=== PATIENT | female | born 1940 | race Caucasian/White ===

== ENCOUNTER 2016-05-14 08:47 | Inpatient (IN) | payer OTHER ==
[2016-05-14] MEDS ORDERED: DUONEB (A & A) ONE (09:01)
[2016-05-14] MEDS ORDERED: HUMULIN R SUBQ ONE (09:02)
[2016-05-14] MEDS ORDERED: SOLU-MEDROL IV ONE (09:02)
[2016-05-14] MEDS ORDERED: DECADRON MISC ONE (09:02)
[2016-05-14] MEDS ORDERED: ATROVENT NEB INH ONE (09:02)
[2016-05-14] MEDS ORDERED: ALBUTEROL NEB INH ONE (09:02)
[2016-05-14] MEDS ORDERED: SOLU-MEDROL ONE (09:03)
[2016-05-14 09:11] LABS: ALLEN TEST YES; BE -2.5 mmoll (-3.0-3.0); BLOOD TYPE ARTERIAL; DRAW SITE R RADIAL; METHB 1.2 % (0.0-1.5); O2(CT) 13.5 mL/dL (15.0-23.0); PCO2(98.6) 43 mmHg (35-45); PO2(98.6) 55 mmHg (60-100); SAMPLE BLOOD; SAO2 88.1 % (95.0-100.0); THB 11.2 g/dL (11.5-17.4); pH(98.6) 7.34 (7.35-7.45)
[2016-05-14 09:14] LABS: MODALITY CANNULA
[2016-05-14 09:17] LABS: MANUAL DIFF NEEDED? NO
[2016-05-14 09:23] LABS: BASO% 0.1 % (0.0-0.8); HEMATOCRIT 35.9 % (37.0-47.0); IMM GRAN# 0.07 X1000 (0.0-0.04); IMM GRAN% 0.4 % (0.0-0.5); LYMPH# 2.11 X1000 (1.2-3.4); LYMPH% 12.3 % (20.5-51.1); MCH 24.2 PG (27-31); MCHC 30.6 g/dL (33-37); MCV 79.1 FL (81-99); MONO% 10.5 % (1.7-9.3); MPV 11.1 FL (7.4-10.4); NEUT% 76.7 % (42.2-75.2); PLT 306 X1000 (130-400); RBC 4.54 XMIL (4.2-5.4)
--- NOTE | 2016-05-14 09:33 | PROVIDER DOCUMENTATION ---
HPI-Fever - General Chief Complaint: Possible Sepsis-D Stated Complaint: resp distress Time Seen by Provider: 05/14/16 08:56 Source: EMS Unable to obtain history due to:: altered Allergies/Adverse Reactions: Patient Allergies Allergy/AdvReac Type Severity Reaction Status Date / Time amoxicillin trihydrate * Allergy VOMITING Verified 03/01/16 01:44 [From Augmentin] potassium clavulanate * Allergy VOMITING Verified 03/01/16 01:44 [From Augmentin] Home Medications: Home Medication List Medication Instructions Recorded Confirmed Last Taken Type Aspirin 500 mg PO DAILY 03/01/16 03/01/16 Unknown History Carvedilol Phosphate [Coreg Cr] 80 mg PO DAILY 03/01/16 03/01/16 Unknown History Carvedilol [Coreg] 50 mg PO DAILY 03/01/16 03/01/16 02/29/16 History Duloxetine [Cymbalta] 30 mg PO QHS 03/01/16 03/01/16 02/29/16 History Furosemide 20 mg PO PRN PRN 03/01/16 03/01/16 Unknown History Gabapentin 600 mg PO TID 03/01/16 03/01/16 Unknown History Glimepiride 4 mg PO BID 03/01/16 03/01/16 Unknown History Insulin Glargine [Lantus] 20 unit .SEE ORDER QPM 03/01/16 03/01/16 Unknown History Lorazepam [Ativan] 1 mg PO Q4-6H PRN PRN 03/01/16 03/01/16 02/28/16 History Naproxen 440 mg PO DAILY 03/01/16 03/01/16 02/29/16 History Potassium Chloride 10 meq PO DAILY 03/01/16 03/01/16 Unknown History Telmisartan 80 mg PO DAILY 03/01/16 03/01/16 Unknown History Tramadol [Ultram] 50 mg PO DAILY 03/01/16 03/01/16 02/29/16 History Trazodone [Desyrel] 50 mg PO QHS 03/01/16 03/01/16 02/28/16 History Levofloxacin [Levaquin] 750 mg PO DAILY #5 tablet 03/05/16 Unknown Rx Prednisone 10 mg PO DAILY #12 tablet 03/05/16 Unknown Rx - History of Present Illness-Fever Fever Severity/Quality: reports: low grade Onset/Duration: reports: unsure Timing: reports: still present, constant Severity: reports: moderate, severe Context: reports: decreased mental status, confusion Cognitive Baseline: alert, oriented x3 Modifying Factors: improves with: nothing Associated Symptoms: reports: cough, fever/chills, shortness of breath, weakness . denies: constipation, diarrhea, genitourinary problems, vomiting Similar Symptoms Previously?: No Recently seen or treated by another doctor?: No Review of Systems - Adult - REVIEW OF SYSTEMS - ADULT ROS:: limited per condition Constitutional: reports: chills, fever Eyes: reports: no symptoms reported Ears, Nose, Mouth & Throat: denies: sinus problem, throat pain, throat swelling Cardiovascular: reports: no symptoms reported Respiratory: reports: chronic cough, shortness of breath. denies: wheezing Gastrointestinal: denies: abdominal pain, diarrhea, vomiting Genitourinary: denies: dysuria, frequency, hematuria Musculoskeletal: reports: no symptoms reported Integumentary: reports: no symptoms reported Neurological: reports: no symptoms reported Psychiatric: reports: no symptoms reported Endocrine: reports: no symptoms reported Hematologic/Lymphatic: reports: no symptoms reported Allergic/Immunologic: reports: no symptoms reported All Other Systems: Reviewed and Negative Past History - Adult - PAST MEDICAL HISTORY-ADULT Review of Records: reports: Old Records Reviewed, Nursing Assessment Review, Medications Reviewed Cardiovascular: reports: CHF, HTN Respiratory: reports: COPD Endocrine/Immune: reports: Diabetes - PRIOR SURGERIES/PROCEDURES Surgical/Procedure History: reports: none - IMMUNIZATION STATUS Childhood Immunizations: See Nurse Assessment Flu Vaccine: See Nurse Assessment - FAMILY HISTORY Family History: reviewed, not pertinent - SOCIAL HISTORY Smoking: cigarettes, less than 1 pack/day Living Situation: family Physical Exam-General - PHYSICAL EXAM-ADULT Exam Limited by: pt condition Initial Vital Signs Reviewed: Yes - CONSTITUTIONAL General Appearance: severe distress, lethargic - EYES Eyes: PERRL/EOMI, pink conjunctivae - HEAD, EARS, NOSE, MOUTH & THROAT HENMT: normocephalic/atraumatic, moist mucous membranes, normal ENT inspection - NECK Neck: full range of motion, normal inspection - RESPIRATORY Respiratory: respiratory distress (moderate), decreased breath sounds, increased rate - CARDIOVASCULAR Cardiovascular: no murmur, tachycardia - GASTROINTESTINAL (ABDOMEN) Abdominal Exam: normal bowel sounds, non tender, soft - MUSCULOSKELETAL Extremity: normal range of motion, normal inspection, no pedal edema - SKIN Integumentary: normal color, warm/dry - NEUROLOGIC Neurologic: grossly normal, no motor/sensory deficits - PSYCHIATRIC Psych/Mental Status: normal mood/affect, normal thought content, normal thought process, oriented x 3 Progress - PLAN OF CARE/RESULTS Progress/Plan/Lab Results: plan of care-labs, meds, bipap, cxr Vital Signs Temp Pulse Resp BP Pulse Ox 05/14/16 11:01 101 H 23 107/54 100 05/14/16 10:17 114 H 23 108/72 98 05/14/16 09:52 110 H 22 148/79 98 05/14/16 09:44 105 H 21 97 05/14/16 08:51 99.7 F H 122 H 22 178/144 89 L amoxicillin trihydrate * [From Augmentin] Allergy (Verified 03/01/16 01:44) VOMITING potassium clavulanate * [From Augmentin] Allergy (Verified 03/01/16 01:44) VOMITING Aspirin 500 mg PO DAILY 03/01/16 Carvedilol Phosphate [Coreg Cr] 80 mg PO DAILY 03/01/16 Carvedilol [Coreg] 50 mg PO DAILY 03/01/16 Duloxetine [Cymbalta] 30 mg PO QHS 03/01/16 Furosemide 20 mg PO PRN PRN 03/01/16 Gabapentin 600 mg PO TID 03/01/16 Glimepiride 4 mg PO BID 03/01/16 Insulin Glargine [Lantus] 20 unit .SEE ORDER QPM 03/01/16 Lorazepam [Ativan] 1 mg PO Q4-6H PRN PRN 03/01/16 Naproxen 440 mg PO DAILY 03/01/16 Potassium Chloride 10 meq PO DAILY 03/01/16 Telmisartan 80 mg PO DAILY 03/01/16 Tramadol [Ultram] 50 mg PO DAILY 03/01/16 Trazodone [Desyrel] 50 mg PO QHS 03/01/16 Levofloxacin [Levaquin] 750 mg PO DAILY #5 tablet 03/05/16 Prednisone 10 mg PO DAILY #12 tablet 03/05/16 Laboratory 05/14/16 05/14/16 05/14/16 09:43 09:06 09:06 WBC RBC Hgb Hct MCV MCH MCHC RDW Std Deviation Plt Count MPV Immature Gran % (Auto) Neut % (Auto) Lymph % (Auto) [place] % (Auto) Eos % (Auto) Baso % (Auto) Immature Gran # (Auto) Neut # (Auto) Lymph # (Auto) [place] # (Auto) Eos # (Auto) Baso # (Auto) PT 10.7 INR 1.01 PTT (Actin FS) 25.2 D-Dimer Specimen Type Sample Site pH pCO2 pO2 HCO3 Base Excess Oxyhemoglobin ABG O2 Sat (Calculated) ABG O2 Saturation ABG Carboxyhemoglobin ABG Methemoglobin Mega Test A-a O2 Difference Total Hemoglobin Lactate Liter Flow Blood Gas Modality FiO2 % Sodium Potassium Chloride Carbon Dioxide Anion Gap BUN Creatinine Estimated GFR/1.73 m2 BUN/Creatinine Ratio Glucose Calculated Osmolality Calcium Magnesium Total Bilirubin AST ALT Alkaline Phosphatase Creatine Kinase Troponin T 0.013 [id number]-[id number] Pept Total Protein Albumin Globulin Albumin/Globulin Ratio Plasma Lactate 2.6 H 05/14/16 05/14/16 05/14/16 09:06 09:06 09:06 WBC RBC Hgb Hct MCV MCH MCHC RDW Std Deviation Plt Count MPV Immature Gran % (Auto) Neut % (Auto) Lymph % (Auto) [place] % (Auto) Eos % (Auto) Baso % (Auto) Immature Gran # (Auto) Neut # (Auto) Lymph # (Auto) [place] # (Auto) Eos # (Auto) Baso # (Auto) PT INR PTT (Actin FS) D-Dimer 0.85 H Specimen Type Sample Site pH pCO2 pO2 HCO3 Base Excess Oxyhemoglobin ABG O2 Sat (Calculated) ABG O2 Saturation ABG Carboxyhemoglobin ABG Methemoglobin Mega Test A-a O2 Difference Total Hemoglobin Lactate Liter Flow Blood Gas Modality FiO2 % Sodium 132 L Potassium 4.8 Chloride 90 L Carbon Dioxide 21 L Anion Gap 21 BUN 14 Creatinine 0.8 Estimated GFR/1.73 m2 > 60 BUN/Creatinine Ratio 18 Glucose 446 H* Calculated Osmolality 284 Calcium 9.7 Magnesium 1.5 Total Bilirubin 0.29 AST 53 H ALT 19 Alkaline Phosphatase 115 H Creatine Kinase 79 Troponin T Rha-P-Ufomjrgpgpb Pept 3833 H Total Protein 6.1 L Albumin 3.7 Globulin 2.4 Albumin/Globulin Ratio 1.5 Plasma Lactate 05/14/16 05/14/16 09:06 09:02 WBC 17.17 H RBC 4.54 Hgb 11.0 L Hct 35.9 L MCV 79.1 L MCH 24.2 L MCHC 30.6 L RDW Std Deviation 17.7 H Plt Count 306 MPV 11.1 H Immature Gran % (Auto) 0.4 Neut % (Auto) 76.7 H Lymph % (Auto) 12.3 L [place] % (Auto) 10.5 H Eos % (Auto) 0.0 Baso % (Auto) 0.1 Immature Gran # (Auto) 0.07 H Neut # (Auto) 13.17 H Lymph # (Auto) 2.11 [place] # (Auto) 1.80 H Eos # (Auto) 0.00 Baso # (Auto) 0.02 PT INR PTT (Actin FS) D-Dimer Specimen Type ARTERIAL Sample Site R RADIAL pH 7.34 L pCO2 43 pO2 55 L HCO3 22.7 Base Excess -2.5 Oxyhemoglobin 85.4 L* ABG O2 Sat (Calculated) 13.5 L ABG O2 Saturation 88.1 L ABG Carboxyhemoglobin 2.00 ABG Methemoglobin 1.2 Mega Test YES A-a O2 Difference 119.0 Total Hemoglobin 11.2 L Lactate 3.30 H Liter Flow 3.0 Blood Gas Modality CANNULA FiO2 % 32.0 Sodium Potassium Chloride Carbon Dioxide Anion Gap BUN Creatinine Estimated GFR/1.73 m2 BUN/Creatinine Ratio Glucose Calculated Osmolality Calcium Magnesium Total Bilirubin AST ALT Alkaline Phosphatase Creatine Kinase Troponin T Psg-M-Giqpkxubjtt Pept Total Protein Albumin Globulin Albumin/Globulin Ratio Plasma Lactate Orders Category Date Time Status Cardiac Monitoring DIRECTED Care 05/14/16 09:02 Active Saline Loc NOW Care 05/14/16 09:02 Active CHEST-PORTABLE [RAD] Stat Exams 05/14/16 09:05 Draft ABG [RESP] Routine Lab 05/14/16 09:02 Completed BLOOD CULTURE [BLDCUL] Stat Lab 05/14/16 09:54 Results CBC WITH ELECTRONIC DIFF [HEME] Stat Lab 05/14/16 09:06 Completed CK PROFILE [SP CHEM] Stat Lab 05/14/16 09:06 Completed COMPREHENSIVE METABOLIC PANEL [CHEM] Stat Lab 05/14/16 09:06 Completed D-DIMER [CHEM] Stat Lab 05/14/16 09:06 Completed LACTATE, PLASMA [CHEM] Stat Lab 05/14/16 09:43 Completed MAGNESIUM [CHEM] Stat Lab 05/14/16 09:06 Completed PRO B-NATRIURETIC PEPTIDE Stat Lab 05/14/16 09:06 Completed PROTIME WITH INR [COAG] Stat Lab 05/14/16 09:06 Completed PTT [COAG] Stat Lab 05/14/16 09:06 Completed TROPONIN T Stat Lab 05/14/16 09:06 Completed Albuterol 2.5MG/Ipratrop 0.5MG [Duoneb (A & A)] Med 05/14/16 09:01 Discontinued 9 ml .ROUTE .STK-MED ONE Albuterol [Albuterol Neb] Med 05/14/16 09:02 Discontinued 10 mg INH NOW ONE Dexamethasone [Decadron] Med 05/14/16 09:02 Discontinued 4 mg MISC NOW ONE Insulin Human Regular [Humulin R] Med 05/14/16 09:02 Discontinued 10 unit SUBQ NOW ONE Ipratropium Darden Neb [Atrovent Neb] Med 05/14/16 09:02 Discontinued 0.5 mg INH NOW ONE Levofloxacin 500 mg/D5w [Levaquin 500 mg/D5w] 100 ml Med 05/14/16 10:19 Active IV NOW Methylprednisolone Sod Succ [Solu-Medrol] Med 05/14/16 09:03 Discontinued 125 mg .ROUTE .STK-MED ONE Methylprednisolone Sod Succ [Solu-Medrol] Med 05/14/16 09:02 Discontinued 125 mg IV NOW ONE Aerosol Treatments Routine Oth 05/14/16 09:04 Completed Aerosol Treatments Stat Oth 05/14/16 09:04 Completed BIPAP Stat Oth 05/14/16 09:05 Active EKG [EKG] Stat Ther 05/14/16 09:02 Ordered - REASSESSMENT Reassessment #1 Time Reassessed: 09:46 Status: improving Reassessment Comment: pt more alert, breathing better - EKG 1 Time of EKG reading by physician:: 09:06 EKG Read and Signed by:: Michelle Pablo EKG Interpretation (*Must complete 3 of following elements*): Abnormal Rate: 112 Rhythm: Sinus tachycardia with PACs [place]: left QRS: LBB MO Interval: normal ST Wave: normal - XRAY 1 XRAY Study: Chest Impression: Abnormal XRAY Interpretation: mild pulmonary edema or pneumonia - CONSULTS/PCP/HOSPITALIST Notification #1 *Consult/PCP/Hospitalist*: Time Discussed: 11:00 Consult Disposition: Will see in ED, Admit Departure - Departure Time of Disposition Order: 11:09 DIAGNOSIS: Respiratory failure, COPD exacerbation, Pneumonia Disposition: ADMITTED INPATIENT Certified Medical Emergency: Emergent Condition: Stable - Critical Care Note Total Time (mins): 45 Critical Care Statement: This patient required my direct personal management to treat or rule out processes, the absence of which, could potentiallly result in sudden, clinically significant life or limb threatening deterioration. Attestation - Scribe Verification/Attestation Scribe:: Xavier Green Acting as Scribe for:: Michelle Pablo Scribe documention review:: This chart was documented by a scribe and accurately reflects the service the provider performed and the decisions made by the provider. Physician Attestation - Physician Attestation I, the provider, attest to the following statement:: Michelle Pablo Physician documentation Attestation:: This documentation recorded by the scribe accurately reflects the service I personally performed and the decisions made by me.
[2016-05-14 09:34] LABS: INR 1.01; PROTIME 10.7 Seconds (9.2-11.7); PTT 25.2 Seconds (22.0-36.0)
--- NOTE | 2016-05-14 09:43 | Diag Imaging Result Document ---
PROCEDURE NAME: CHEST-PORTABLE - 05/14/2016 AP PORTABLE CHEST, 05/14/2016 AT 0920 HOURS: FINDINGS: There is ill-defined opacity in the costophrenic angles which was not present on 03/01/2016. The patient is rotated slightly to the left. IMPRESSION: Minimal pulmonary edema or pneumonia in the lung bases.
[2016-05-14 10:09] LABS: AGAP 21; ALBUMIN 3.7 g/dL (3.5-5.0); ALKALINE PHOSPHATASE 115 U/L (32-104); BUN 14 mg/dL (8-22); CALCIUM 9.7 mg/dL (8.8-10.2); CHLORIDE 90 mmol/L (98-107); CK PROFILE 79 U/L (24-173); COSMO 284; GOT 53 U/L (10-30); GPT 19 U/L (10-36); MAGNESIUM 1.5 mg/dL (1.5-2.7); POTASSIUM 4.8 mmol/L (3.5-5.1); SODIUM 132 mmol/L (136-145); TCO2 21 mmol/L (25-35); TOTAL BILIRUBIN 0.29 mg/dL (0.20-1.00); TOTAL PROTEIN 6.1 g/dL (6.3-8.3)
[2016-05-14] MEDS ORDERED: LEVAQUIN 500 MG/D5W 100 ML IV ONE (10:19)
[2016-05-14] MEDS ORDERED: LASIX IV ONE (11:27)
[2016-05-14] MEDS ORDERED: DUONEB (A & A) INH PRN (12:01)
[2016-05-14] MEDS ORDERED: VANCOMYCIN IV PER PHARMACY MISC SCH (12:01)
[2016-05-14] MEDS ORDERED: MERREM 1 GM in NS 50 ML IV ONE (13:00)
[2016-05-14] MEDS: MERREM 1 GM in NS 50 ML IV SCH ×2 (13:01→20:52)
[2016-05-14] MEDS: LOVENOX SUBQ SCH (13:01)
[2016-05-14] MEDS: NICODERM PATCH TD SCH (13:02)
--- NOTE | 2016-05-14 13:05 | HISTORY AND PHYSICAL ---
CHIEF COMPLAINT: Shortness of breath. HISTORY OF PRESENT ILLNESS: Mrs Ramirez is a 75-year-old female with a history of COPD and diastolic heart failure, nicotine dependence, who presents to our ER with acute onset of shortness of breath that began this morning. The patient is a fairly poor historian, is on BiPAP therapy. History is difficult to obtain and there is no family at the bedside; however, she states that she was short of breath upon awakening, coughing up martinez sputum and came to our ER for evaluation. Initial O2 saturations were in the high 80s. ABG done in the ER showed hypoxemia and lactic acidosis. Chest x-ray showed minimal basilar edema versus pneumonia and she was noted to have a white count of almost 18,000. She has been given antibiotics and placed on BiPAP therapy. She states that she does not want to be intubated if that were to be required. Blood cultures have been obtained. She will now be admitted to the ICU for further treatment and evaluation. PAST MEDICAL HISTORY: 1. Congestive heart failure. 2. Diastolic heart failure with an echocardiogram done in February of last year which showed an EF of 65% and no acute valvular disorders. 3. Nicotine dependence. 4. Diabetes mellitus. 5. Hypertension. 6. Chronic pain. 7. Depression. PAST SURGICAL HISTORY: Unknown. SOCIAL HISTORY: Patient smokes half a pack a day. Apparently her is recently . She lives with her daughter. There is no alcohol or drug use. REVIEW OF SYSTEMS: Ten point review of systems was obtained and found to be negative with the exception of the HPI. HOME MEDICATIONS: Amoxicillin/Augmentin. HOME MEDICATIONS: Currently being verified. PHYSICAL EXAMINATION: VITAL SIGNS: Blood pressure is 148/79, heart rate is 110, respiratory rate 22, O2 saturation 98% on BiPAP. GENERAL: This is a frail, chronically ill, 75-year-old female, lying in hospital bed in mild to moderate respiratory distress. NEUROLOGIC: The patient is somewhat lethargic, but opens her eyes to verbal stimulus. She is oriented and follows commands without focal deficits. HEENT: Head is atraumatic and normocephalic. Her pupils are equal, round, and reactive to light. Oral mucosa is dry. Trachea is midline. CHEST: Crackles and wheezes bilaterally. CV: Regular and tachy. S1-S2 is noted. GI: Soft, nondistended, nontender. Bowel sounds positive. EXTREMITIES: Trace edema. Pulses palpable but diminished. DIAGNOSTIC DATA: A chest x-ray minimal pulmonary edema, pneumonia in the lung bases. WBC 17.17, hemoglobin 11, hematocrit 35.9, platelet count 306,000. PT 10.7, INR 1.01. D-dimer 0.85. ABG on 3 L pH 7.34, CO2 43, O2 55, bicarb 22.7, oxyhemoglobin 85.4, lactate 3.3. Sodium 132, potassium 4.8, chloride 90, CO2 21, anion gap 21, BUN 14, creatinine 0.8, glucose 446, calcium 9.7, magnesium 1.5, AST 53, ALT 19, alkaline phosphatase 115, CK 79. Troponin negative. ProBNP 3833. Protein 6.1. Lactate 2.6. ASSESSMENT/PLAN: 1. Acute hypoxic respiratory failure: Likely secondary to a combination of COPD exacerbation and pneumonia. She will be treated for both of these. We will also get a CTA of the chest to rule out PE. We will add oxygen as necessary, transfer her to the ICU and continue broad- spectrum antibiotics, breathing treatments and steroids as well as aggressive pulmonary toilet. 2. Chronic obstructive pulmonary disease exacerbation: As above. 3. Pneumonia: As above. 4. Sepsis: As above. 5. Hyperglycemia in a patient with a type 2 diabetes: IV insulin has been given in the ER. We will continue to check her insulin often and add sliding scale insulin and also add basal insulin to her regimen as well. Hemoglobin A1c done in February was 10%. 6. Diastolic heart failure: We will add intravenous Lasix now. Monitor strict Is and Os and daily weights. Echocardiogram done in February shows normal EF. 7. Nicotine dependence: Patient has been highly advised to quit smoking, nicotine patch has been prescribed and we will continue daily cessation education. 8. ICU prophylaxis with Protonix and Lovenox. Further recommendations to follow. Dictated by VIPUL Miller for Roula Nelson MD
--- NOTE | 2016-05-14 13:16 | Diag Imaging Result Document ---
PROCEDURE NAME: ANGIOGRAM/PULMONARY ARTERIES - 05/14/2016 CT OF THE CHEST WITH INTRAVENOUS CONTRAST: FINDINGS: There is in homogeneity and enlargement of the right thyroid lobe. There is a calcified nodule in the anteroinferior right thyroid lobe. There is COPD. There are some calcified granulomata in the right upper lobe. There are no filling defects in the pulmonary arteries and the aorta is not distended. There is no evidence of aortic dissection. The adrenal glands appear hyperplastic. There is no evidence of significant adenopathy or abnormal fluid collections. No acute bony abnormalities are present. IMPRESSION: COPD. No evidence of pulmonary emboli.
--- NOTE | 2016-05-14 14:16 | EKG Report ---
Test Performed on : 05/14/2016 09:06:11 AM Test Reason : SOB Blood Pressure : / mmHG Vent. Rate : 112 BPM Atrial Rate : 112 BPM P-R Int : 140 ms QRS Dur : 136 ms QT Int : 342 ms P-R-T Axes : 097 -35 105 degrees QTc Int : 466 ms Sinus tachycardia. with premature atrial complexes. Left axis deviation Left bundle branch block Abnormal ECG When compared with ECG of 14-MAY-2016 09:05, (Unconfirmed) No significant change was found Unconfirmed Result
[2016-05-14] MEDS ORDERED: VANCOMYCIN 1,200 MG in NS 250 ML IV ONE (15:00)
--- NOTE | 2016-05-14 15:09 | CONSULTATION ---
DATE OF CONSULTATION: 05/14/2016 REFERRING PHYSICIAN: Dr. Nelson. CHIEF COMPLAINT: Evaluation for COPD exacerbation. Pneumonia is possible. Episode of near syncope and weakness with CT angiogram negative for PE. HISTORY OF PRESENTING ILLNESS: A 75-year-old female with past medical history of COPD, congestive heart failure likely diastolic, hypertension, depression, chronic pain, diabetes visited her primary care physician Dr. Wood for bronchitis and COPD and today she was so weak and so short of breath so she called the ambulance she had a CT angiogram in ER that ruled out PE. I interviewed the patient and her daughter during the evaluation. PAST MEDICAL HISTORY: Depression, chronic pain, hypertension, diabetes, nicotine dependence, diastolic heart failure. SOCIAL HISTORY: Lives alone. Active smoker. Her daughter was with her during the evaluation and she appealed for her mom to live with her children rather than by herself. REVIEW OF SYSTEMS: As detailed in history of presenting illness, otherwise noncontributory. ALLERGIES: Were reviewed and they include amoxicillin, potassium. MEDICATIONS IN THE HOSPITAL: Reviewed, include nebulized treatment, Lovenox for DVT prophylaxis, insulin, Levaquin, meropenem, vancomycin, Protonix. I am going to add low dose steroids. PHYSICAL EXAMINATION: Vital Signs: Noted. General: Awake in bed, tired. Her daughter is at the bedside. Head and Neck: Examined. Trachea midline. Chest: Reduced entry bilaterally. Cardiac Examination: S1, S2. Abdomen: Nontender. Extremities examination: +1 pedal edema. Neurological: Awake, lethargic. LABS/INVESTIGATIONS: CT angiogram ruled out PE and showed COPD. Chest x-ray possible pneumonia. WBC 17.17, hemoglobin 11, platelets are 306, pH 7.34 pCO2 43, PO2 55 on nasal cannula. Sodium 132, potassium 4.8, glucose 446 so I am going to hold on adding steroids. ASSESSMENT AND PLAN: A 75-year-old female past history as above with chronic obstructive pulmonary disease exacerbation, near syncope and weakness with shortness of breath. PE is ruled out on CT angiogram. There is possibility of pneumonia, agree with antibiotics, bronchodilators, is hyperglycemia so will try to avoid steroids. Thank you for the courtesy of this consult.
[2016-05-14] MEDS: HUMALOG SUBQ SCH ×2 (15:20→20:52)
[2016-05-14] MEDS: PROTONIX IV SCH (15:20)
[2016-05-14] MEDS: SODIUM CHLORIDE 0.9% INJ SCH (15:20)
[2016-05-14] MEDS: DUONEB (A & A) INH SCH ×2 (15:32→19:45)
[2016-05-14] MEDS: XANAX PO PRN (16:28)
[2016-05-14] MEDS ORDERED: INSULIN PEN NEEDLES ONE (20:42)
[2016-05-14] MEDS: AMARYL PO SCH (20:51)
[2016-05-14] MEDS: CYMBALTA PO SCH (20:52)
[2016-05-14] MEDS: LANTUS SUBQ SCH (20:53)
[2016-05-15] MEDS: DUONEB (A & A) INH SCH ×4 (03:01→19:24)
[2016-05-15] MEDS: MERREM 1 GM in NS 50 ML IV SCH ×3 (03:46→20:57)
[2016-05-15 04:36] LABS: ALLEN TEST YES; BE 4.6 mmoll (-3.0-3.0); BLOOD TYPE ARTERIAL; DRAW SITE R RADIAL; METHB 0.8 % (0.0-1.5); PCO2(98.6) 50 mmHg (35-45); PO2(98.6) 114 mmHg (60-100); SAMPLE BLOOD; SAO2 98.7 % (95.0-100.0); THB 9.4 g/dL (11.5-17.4); pH(98.6) 7.39 (7.35-7.45)
[2016-05-15 04:37] LABS: MODALITY CANNULA
[2016-05-15 05:48] LABS: AGAP 14; BUN 17 mg/dL (8-22); CALCIUM 9.4 mg/dL (8.8-10.2); CHLORIDE 94 mmol/L (98-107); COSMO 276; POTASSIUM 3.4 mmol/L (3.5-5.1); SODIUM 134 mmol/L (136-145); TCO2 26 mmol/L (25-35)
[2016-05-15 06:03] LABS: HEMATOCRIT 30.7 % (37.0-47.0); HEMOGLOBIN 9.4 g/dL (12.0-16.0); MCH 23.9 PG (27-31); MCHC 30.6 g/dL (33-37); MCV 77.9 FL (81-99); MPV 11.7 FL (7.4-10.4); RBC 3.94 XMIL (4.2-5.4)
[2016-05-15] MEDS: HUMALOG SUBQ SCH ×4 (06:08→20:59)
--- NOTE | 2016-05-15 07:35 | Diag Imaging Result Document ---
PROCEDURE NAME: CHEST-PORTABLE - 05/15/2016 SINGLE FRONTAL RADIOGRAPH OF THE CHEST: COMPARISON: 05/14/2016. FINDINGS: The ill-defined opacity at the costophrenic angles seen on the previous study is again identified and probably represents atelectasis. No new consolidation is identified. Cardiac silhouette is stable. IMPRESSION: Stable chest. [facility]
[2016-05-15] MEDS ORDERED: KLOR-CON PO ONE (09:00)
[2016-05-15] MEDS: NICODERM PATCH TD SCH (09:07)
[2016-05-15] MEDS: AMARYL PO SCH ×2 (09:07→20:58)
[2016-05-15] MEDS: LEVAQUIN 750 MG in NS 150 ML IV SCH (11:03)
[2016-05-15] MEDS: LOVENOX SUBQ SCH (11:06)
[2016-05-15] MEDS: XANAX PO PRN ×2 (11:57→20:59)
[2016-05-15] MEDS: PROTONIX IV SCH (13:06)
[2016-05-15] MEDS: SODIUM CHLORIDE 0.9% INJ SCH (13:06)
[2016-05-15] MEDS: NS 1,000 ML IV SCH (15:06)
[2016-05-15] MEDS ORDERED: MUCOMYST 20% INH ONE (16:12)
[2016-05-15] MEDS ORDERED: XANAX PO ONE (16:13)
--- NOTE | 2016-05-15 16:57 | PROGRESS NOTE ---
DATE: 05/15/2016 SUBJECTIVE: The patient is resting comfortably in bed. She has no complaints. She is anxious to move to a room out of the ICU. OBJECTIVE: Vital Signs: Temperature 97 degrees, blood pressure 109/71, heart rate 79, respirations 22, O2 saturations 99% on 5 L nasal cannula. General: This is an elderly female, lying comfortably in bed, in no acute distress. Head: Normocephalic, atraumatic. Heart: S1, S2 normal. Regular rate and rhythm. Lungs: Clear to auscultation bilaterally. No wheezes, no rales, no rhonchi. Abdomen: Positive bowel sounds. Soft, nontender, nondistended. Extremities: No edema. No cyanosis. LABS: White blood cell count 11, hemoglobin 9.4, hematocrit 30, platelets 215,000. Sodium 134, potassium 3.4, chloride 94, CO2 26, glucose 209. ASSESSMENT AND PLAN: 1. Acute chronic obstructive pulmonary disease exacerbation. Improved today. Continue on bronchodilator therapy, IV antibiotics, and supplemental oxygen. 2. Anxiety disorder. Continue on p.r.n. Xanax. 3. Diabetes mellitus type 2. Continue on Amaryl and Lantus. 4. Neuropathy. Continue on Lyrica. 5. Deep vein thrombosis prophylaxis. Continue on Lovenox. 6. The patient is stable for transfer to the medical floor. We will consult Physical Therapy.
[2016-05-15] MEDS ORDERED: HALDOL IM PRN (17:21)
[2016-05-15] MEDS: PREDNISONE PO SCH (17:29)
[2016-05-15] MEDS: LYRICA PO SCH (20:57)
[2016-05-15] MEDS: CYMBALTA PO SCH (20:59)
[2016-05-15] MEDS: LANTUS SUBQ SCH (21:05)
[2016-05-16] MEDS ORDERED: VANCOMYCIN 1 GM/NS 250 ML IV SCH (03:00)
[2016-05-16] MEDS: DUONEB (A & A) INH SCH ×4 (03:26→21:38)
[2016-05-16] MEDS: MERREM 1 GM in NS 50 ML IV SCH ×3 (03:33→20:12)
[2016-05-16] MEDS: NS 1,000 ML IV SCH (03:35)
[2016-05-16 04:46] LABS: ALLEN TEST YES; BE 2.2 mmoll (-3.0-3.0); BLOOD TYPE ARTERIAL; DRAW SITE R RADIAL; METHB 0.7 % (0.0-1.5); O2(CT) 16.9 mL/dL (15.0-23.0); PO2(98.6) 142 mmHg (60-100); SAMPLE BLOOD; SAO2 97.6 % (95.0-100.0); THB 12.4 g/dL (11.5-17.4)
[2016-05-16 04:46] LABS: HEMATOCRIT 29.4 % (37.0-47.0); HEMOGLOBIN 8.8 g/dL (12.0-16.0); MCH 24.2 PG (27-31); MCHC 29.9 g/dL (33-37); MPV 10.8 FL (7.4-10.4); RBC 3.63 XMIL (4.2-5.4)
[2016-05-16 04:47] LABS: MODALITY CANNULA; PCO2(98.6) 61 mmHg (35-45)
[2016-05-16 05:01] LABS: AGAP 10; BUN 18 mg/dL (8-22); CALCIUM 9.1 mg/dL (8.8-10.2); CHLORIDE 100 mmol/L (98-107); COSMO 280; POTASSIUM 4.5 mmol/L (3.5-5.1); SODIUM 137 mmol/L (136-145); TCO2 27 mmol/L (25-35)
[2016-05-16] MEDS: HUMALOG SUBQ SCH ×4 (06:25→20:12)
[2016-05-16] MEDS: PREDNISONE PO SCH (08:01)
[2016-05-16] MEDS: LYRICA PO SCH ×2 (08:01→20:12)
[2016-05-16] MEDS: AMARYL PO SCH ×2 (08:01→20:12)
[2016-05-16] MEDS: NICODERM PATCH TD SCH (08:01)
--- NOTE | 2016-05-16 08:58 | Diag Imaging Result Document ---
PROCEDURE NAME: CHEST-PORTABLE - 05/16/2016 AP PORTABLE CHEST AT 0500 HOURS: FINDINGS: There is apparent COPD. The heart size is at the upper limits of normal. The appearance of the chest has not changed significantly since 05/15/2016. Some atelectasis or fibrosis is present in the left costophrenic sulcus. IMPRESSION: Stable chest.
[2016-05-16] MEDS: SOLU-MEDROL IV SCH ×2 (10:08→16:42)
[2016-05-16] MEDS: LEVAQUIN 750 MG in NS 150 ML IV SCH (10:08)
[2016-05-16] MEDS: LOVENOX SUBQ SCH (11:03)
[2016-05-16] MEDS: PROTONIX IV SCH (13:00)
[2016-05-16] MEDS: XANAX PO PRN (13:04)
[2016-05-16] MEDS ORDERED: MAGNESIUM SULFATE 2 GM/S.W.I. 50 ML IV ONE (17:31)
[2016-05-16] MEDS ORDERED: CARDIZEM IV ONE (17:37)
[2016-05-16] MEDS: MORPHINE IV PRN (17:37)
[2016-05-16] MEDS: CARDIZEM 100 MG/NS 100 ML IV SCH (17:53)
--- NOTE | 2016-05-16 17:54 | PROGRESS NOTE ---
DATE: 05/16/2016 SUBJECTIVE: The patient is sitting up in bed, eating breakfast. She states that she feels a whole lot better today. OBJECTIVE: Vital Signs: Temperature 98 degrees, blood pressure 124/84, heart rate 91, respirations 19, O2 saturations 98% on 1 L nasal cannula. General: This is an elderly female, lying comfortably in bed, in no acute distress. Head: Normocephalic atraumatic. Heart: S1, S2. Normal. Regular rate. Lungs: Mild expiratory wheezes in all lung tejeda. Abdomen: Positive bowel sounds. Soft, nontender, nondistended. Extremities: No edema. No cyanosis. No calf tenderness. Neurologic: The patient is alert and oriented x3. LABS: White blood cell count 9, hemoglobin 8.8, hematocrit 29, platelets 194,000. ABG, pH is 7.3, pCO2 61, PO2 142, bicarb 26. Sodium 137, potassium 4.5, chloride 100, CO2 27, BUN 18, creatinine 0.9, glucose 175, magnesium 1.6. ASSESSMENT AND PLAN: 1. Acute chronic obstructive pulmonary disease exacerbation. We will continue on IV steroids, bronchodilator therapy and antibiotics plus supplemental oxygen. 2. Diabetes mellitus type 2. Will continue on Amaryl and Lantus. 3. Anxiety disorder. Continue on p.r.n. Xanax. 4. Neuropathy. Continue on Lyrica. 5. Deep vein thrombosis prophylaxis. Continue on Lovenox. 6. Continue with physical therapy.
[2016-05-16] MEDS: CYMBALTA PO SCH (20:11)
[2016-05-16] MEDS: LANTUS SUBQ SCH (20:12)
[2016-05-17] MEDS: SOLU-MEDROL IV SCH ×3 (00:51→16:36)
[2016-05-17] MEDS: DUONEB (A & A) INH SCH ×3 (03:39→16:36)
[2016-05-17] MEDS: MERREM 1 GM in NS 50 ML IV SCH (04:57)
[2016-05-17 05:25] LABS: ALLEN TEST YES; BE 6.5 mmoll (-3.0-3.0); BLOOD TYPE ARTERIAL; DRAW SITE R RADIAL; METHB 0.6 % (0.0-1.5); MODALITY CANNULA; O2(CT) 12.4 mL/dL (15.0-23.0); PCO2(98.6) 49 mmHg (35-45); PO2(98.6) 75 mmHg (60-100); SAMPLE BLOOD; SAO2 96.9 % (95.0-100.0); THB 9.2 g/dL (11.5-17.4); pH(98.6) 7.42 (7.35-7.45)
[2016-05-17 05:45] LABS: HEMATOCRIT 30.9 % (37.0-47.0); HEMOGLOBIN 9.3 g/dL (12.0-16.0); MCH 24.2 PG (27-31); MCHC 30.1 g/dL (33-37); MCV 80.3 FL (81-99); MPV 11.3 FL (7.4-10.4); RBC 3.85 XMIL (4.2-5.4)
[2016-05-17] MEDS: HUMALOG SUBQ SCH ×4 (06:35→22:14)
[2016-05-17 06:44] LABS: AGAP 10; BUN 18 mg/dL (8-22); CALCIUM 9.4 mg/dL (8.8-10.2); CHLORIDE 97 mmol/L (98-107); COSMO 282; POTASSIUM 4.8 mmol/L (3.5-5.1); SODIUM 134 mmol/L (136-145); TCO2 27 mmol/L (25-35)
[2016-05-17] MEDS ORDERED: VANCOMYCIN IV PER PHARMACY MISC SCH (07:15)
[2016-05-17] MEDS: NICODERM PATCH TD SCH (08:02)
[2016-05-17] MEDS: LYRICA PO SCH ×2 (08:02→22:00)
[2016-05-17] MEDS: AMARYL PO SCH ×2 (08:02→22:00)
[2016-05-17] MEDS: XANAX PO PRN (08:41)
[2016-05-17] MEDS ORDERED: MIRALAX PO ONE (09:50)
[2016-05-17] MEDS ORDERED: NS NEB INH SCH (10:00)
[2016-05-17] MEDS: LEVAQUIN 750 MG in NS 150 ML IV SCH (10:07)
[2016-05-17] MEDS: LOVENOX SUBQ SCH (11:07)
[2016-05-17] MEDS: MUCOMYST 20% INH SCH ×2 (11:26→19:30)
[2016-05-17] MEDS: XOPENEX NEB INH SCH ×3 (11:26→19:30)
[2016-05-17] MEDS: CARDIZEM 100 MG/NS 100 ML IV SCH (14:18)
[2016-05-17] MEDS: PROTONIX IV SCH (15:24)
[2016-05-17] MEDS: VANCOMYCIN 1 GM/NS 250 ML IV SCH (15:24)
--- NOTE | 2016-05-17 16:36 | PROGRESS NOTE ---
DATE: 05/17/2016 SUBJECTIVE: The patient is sitting up in a chair eating breakfast. She states that she feels a lot better today. OBJECTIVE: Vital Signs: Temperature 97 degrees, blood pressure 172/78, heart rate 80, respirations 18, O2 saturations 97% on 1 L nasal cannula. General: This is a elderly female, sitting up in a chair. No acute distress. Head: Normocephalic, atraumatic. Heart: S1, S2. Normal. Regular rate and rhythm. Lungs: Clear to auscultation bilaterally. No wheezes, no rales. No rhonchi. Abdomen: Positive bowel sounds. Soft, nontender, nondistended. Extremities: No edema. No cyanosis. No calf tenderness. Neurologic: The patient is alert and oriented x3. No focal neurologic deficits noted. LABORATORY: White blood cell count 7.2, hemoglobin 9.3, hematocrit 30, platelets 217,000. ABG: PH of 7.4, pCO2 49, PO2 79, bicarb 30, O2 saturations 96%. Sodium 134, potassium 4.8, chloride 97, CO2 27, BUN 18, creatinine 0.7, glucose 260. ASSESSMENT AND PLAN: 1. Acute chronic obstructive pulmonary disease exacerbation. Continue on IV steroids, bronchodilator therapy and supplemental oxygen. 2. Oxacillin-sensitive Staphylococcus aureus in the sputum. Continue on vancomycin. 3. Diabetes mellitus type 2. Continue on Lantus b.i.d. 4. Anxiety disorder. Continue on Xanax p.r.n. 5. Neuropathy. Continue on Lyrica. 6. Deep venous thrombosis prophylaxis. Continue on Lovenox. 7. Continue with physical therapy.
[2016-05-17] MEDS: MORPHINE IV PRN (18:37)
[2016-05-17] MEDS: DULCOLAX PR SCH (22:09)
[2016-05-17] MEDS: CYMBALTA PO SCH (22:09)
[2016-05-17] MEDS: LANTUS SUBQ SCH (22:10)
[2016-05-17] MEDS: MIRALAX PO SCH (22:25)
[2016-05-18] MEDS: VANCOMYCIN 1 GM/NS 250 ML IV SCH ×2 (02:59→15:06)
[2016-05-18] MEDS: SOLU-MEDROL IV SCH ×3 (03:02→18:48)
[2016-05-18] MEDS: DUONEB (A & A) INH SCH ×4 (03:18→15:52)
[2016-05-18] MEDS: XOPENEX NEB INH SCH ×5 (03:38→19:20)
[2016-05-18 03:45] LABS: ALLEN TEST YES; BE 11.3 mmoll (-3.0-3.0); BLOOD TYPE ARTERIAL; DRAW SITE R RADIAL; METHB 1.1 % (0.0-1.5); O2(CT) 13.3 mL/dL (15.0-23.0); PO2(98.6) 113 mmHg (60-100); SAMPLE BLOOD; SAO2 97.7 % (95.0-100.0); THB 9.7 g/dL (11.5-17.4); pH(98.6) 7.45 (7.35-7.45)
[2016-05-18 03:46] LABS: MODALITY CANNULA
[2016-05-18 03:48] LABS: PCO2(98.6) 53 mmHg (35-45)
--- NOTE | 2016-05-18 05:59 | EKG Report ---
Test Performed on : 05/16/2016 6:00:39 PM Test Reason : AFIB RVR Blood Pressure : / mmHG Vent. Rate : 090 BPM Atrial Rate : 090 BPM P-R Int : 116 ms QRS Dur : 130 ms QT Int : 372 ms P-R-T Axes : 000 040 176 degrees QTc Int : 455 ms Poor data quality, interpretation may be adversely affected Normal sinus rhythm. Nonspecific intraventricular block Cannot rule out Anteroseptal infarct , age undetermined T wave abnormality, consider lateral ischemia Abnormal ECG When compared with ECG of 14-MAY-2016 09:06, (Unconfirmed) premature atrial complexes. are no longer present Nonspecific intraventricular block has replaced Left bundle branch block Minimal criteria for Anteroseptal infarct are now present Unconfirmed Result
[2016-05-18 06:48] LABS: HEMATOCRIT 34.5 % (37.0-47.0); HEMOGLOBIN 10.3 g/dL (12.0-16.0); MCH 23.8 PG (27-31); MCHC 29.9 g/dL (33-37); MCV 79.9 FL (81-99); MPV 10.5 FL (7.4-10.4); RBC 4.32 XMIL (4.2-5.4)
[2016-05-18] MEDS: HUMALOG SUBQ SCH ×5 (06:49→20:34)
[2016-05-18 07:06] LABS: AGAP 11; BUN 20 mg/dL (8-22); CALCIUM 9.7 mg/dL (8.8-10.2); CHLORIDE 95 mmol/L (98-107); COSMO 280; MAGNESIUM 1.7 mg/dL (1.5-2.7); POTASSIUM 4.6 mmol/L (3.5-5.1); SODIUM 137 mmol/L (136-145); TCO2 31 mmol/L (25-35)
[2016-05-18] MEDS: MUCOMYST 20% INH SCH ×2 (07:49→19:20)
--- NOTE | 2016-05-18 08:15 | Diag Imaging Result Document ---
PROCEDURE NAME: CHEST-PORTABLE - 05/18/2016 PORTABLE CHEST X-RAY, 05/18/2016: COMPARISON: 05/16/2016. FINDINGS: There is some streaky atelectasis or infiltrate at the right hilum. Heart size and pulmonary vascularity remains top normal. Lungs may be hyperexpanded similar to prior. IMPRESSION: Development of some streaky atelectasis or infiltrate at the right hilum.
[2016-05-18] MEDS: MIRALAX PO SCH ×2 (10:35→20:33)
[2016-05-18] MEDS: AMARYL PO SCH ×2 (10:35→20:33)
[2016-05-18] MEDS: LYRICA PO SCH ×2 (10:35→20:33)
[2016-05-18] MEDS: NICODERM PATCH TD SCH (10:35)
[2016-05-18] MEDS: LANTUS SUBQ SCH ×2 (10:36→20:35)
[2016-05-18] MEDS: XANAX PO PRN ×2 (10:54→20:34)
[2016-05-18] MEDS: PROTONIX IV SCH (13:09)
[2016-05-18] MEDS: SODIUM CHLORIDE 0.9% INJ SCH (13:09)
[2016-05-18] MEDS: LOVENOX SUBQ SCH (13:09)
[2016-05-18] MEDS ORDERED: TYLENOL PO PRN (15:38)
--- NOTE | 2016-05-18 16:02 | PROGRESS NOTE ---
DATE: 05/18/2016 SUBJECTIVE: Ms. Ramirez is breathing better, feels better. She wears oxygen at home and she can tell her air movement and work of breathing has improved, even from yesterday. OBJECTIVE: Vital signs: Temperature 97.6 degrees, pulse 80, respirations 18, blood pressure 166/94. Lungs: Decreased breath sounds both bases, but the anterolateral and posterior moving air well. No active wheezing. There is prolonged expiratory phase about 1.5 to 1. She is on nasal cannula. Cardiovascular: Regular rhythm and rate without murmur or S3. Abdomen: Soft. No organomegaly. Extremities: Without clubbing, cyanosis, or edema. Urine output 2700 mL. LAB: White count 7860, hematocrit 34, platelet count 251,000. Platelets unremarkable 251,000. Chemistry: Sodium 137, potassium 4.6, chloride 95, bicarb at 31, BUN 20, creatinine 0.7, blood sugar 335, 171, 168. ASSESSMENT AND PLAN: Note the chest x-ray from this morning development of some streaky atelectasis or infiltrate in the left hilum. ASSESSMENT AND PLAN: 1. Acute on chronic, chronic obstructive pulmonary disease with chronic obstructive pulmonary disease exacerbation. Continue IV steroids, bronchodilators, and supplemental oxygen. 2. Methicillin sensitive Staphylococcus aureus in the sputum. Continue vancomycin. 3. Diabetes mellitus type 2. Follow pattern sugars. Appear to be improving. 4. Anxiety disorder. Continue Xanax. 5. Neuropathy. She is on Lyrica. 6. Continue deep venous thrombosis prophylaxis. Continue physical therapy. Review of her current orders, I do not see anything to change at this time. On vancomycin, Lantus is 25 units b.i.d. , IV fluids at keep vein open, Methylprednisone 40 mg IV q.12 hours. She is on Lyrica 150 mg b.i.d., Cymbalta 30 mg at bedtime, Protonix 40 mg IV q. 24 hours, and some nicotine patches.
[2016-05-18] MEDS: CYMBALTA PO SCH (20:33)
[2016-05-18] MEDS: DULCOLAX PR SCH (20:33)
[2016-05-19] MEDS: DUONEB (A & A) INH SCH (03:28)
[2016-05-19] MEDS: XOPENEX NEB INH SCH ×7 (03:29→23:28)
[2016-05-19] MEDS: SOLU-MEDROL IV SCH ×3 (04:31→18:13)
[2016-05-19] MEDS: VANCOMYCIN 1 GM/NS 250 ML IV SCH ×2 (04:31→16:57)
[2016-05-19] MEDS: HUMALOG SUBQ SCH ×4 (06:20→20:11)
[2016-05-19 06:22] LABS: AGAP 9; BUN 21 mg/dL (8-22); CALCIUM 9.2 mg/dL (8.8-10.2); CHLORIDE 96 mmol/L (98-107); COSMO 279; POTASSIUM 4.3 mmol/L (3.5-5.1); SODIUM 138 mmol/L (136-145); TCO2 33 mmol/L (25-35)
[2016-05-19] MEDS: MUCOMYST 20% INH SCH ×3 (07:58→20:27)
[2016-05-19] MEDS: LYRICA PO SCH ×2 (08:34→20:09)
[2016-05-19] MEDS: AMARYL PO SCH ×2 (08:34→20:09)
[2016-05-19] MEDS: NICODERM PATCH TD SCH (08:34)
[2016-05-19] MEDS: LANTUS SUBQ SCH ×2 (08:37→20:10)
[2016-05-19] MEDS: MIRALAX PO SCH ×2 (09:20→20:18)
[2016-05-19] MEDS: SODIUM CHLORIDE 0.9% INJ SCH (10:37)
[2016-05-19] MEDS: LOVENOX SUBQ SCH (12:46)
[2016-05-19] MEDS: PROTONIX IV SCH (12:46)
--- NOTE | 2016-05-19 14:19 | PROGRESS NOTE ---
DATE: 05/19/2016 Ms. Ramirez states her breathing is better and she is more comfortable. She remains afebrile.Vital signs: Temperature was 99.6 degrees, pulse 98, respirations 18, blood pressure 180/82. Lungs: Are clear in all lung tejeda. Decreased breath sounds both bases. Cardiovascular: Regular rhythm and rate without murmur or S3. Abdomen: Soft. Skin: Is warm and dry. Urine output 1690. LAB: White count 7860, hematocrit 34, platelet count 251,000. That is from yesterday. Today's electrolytes: Sodium 138, potassium 4.3, chloride 96, bicarb 33, BUN 21, creatinine 0.5. Blood sugar is 299, 132, 111. Chest x-ray reviewed from yesterday: Development of some streaky atelectasis infiltrate in the right hilum. ASSESSMENT AND PLAN: 1. Acute on chronic COPD or COPD exacerbation. Continue IV steroids, bronchodilators, supplemental O2. The patient was started on a steroid inhaler. 2. Methicillin-resistant Staph aureus in the sputum. On vancomycin. 3. Diabetes mellitus type 2. Sugars appear fairly well controlled. She is on Solu-Medrol. 4. Anxiety disorder on Xanax. 5. Neuropathy. 6. Continue DVT prophylaxis. Encourage her getting out of bed and getting some strength. Review of her orders: I do not see anything we need to change at this time.
[2016-05-19] MEDS ORDERED: INSULIN PEN NEEDLES ONE (16:25)
[2016-05-19] MEDS: CYMBALTA PO SCH (20:10)
[2016-05-19] MEDS: XANAX PO PRN (20:10)
[2016-05-19] MEDS: DULCOLAX PR SCH (20:10)
[2016-05-20] MEDS: SOLU-MEDROL IV SCH ×2 (03:45→11:03)
[2016-05-20] MEDS: VANCOMYCIN 1 GM/NS 250 ML IV SCH (03:45)
[2016-05-20] MEDS: HUMALOG SUBQ SCH ×2 (06:37→11:03)
[2016-05-20 06:50] LABS: AGAP 11; BUN 22 mg/dL (8-22); CALCIUM 9.3 mg/dL (8.8-10.2); CHLORIDE 97 mmol/L (98-107); COSMO 277; POTASSIUM 4.6 mmol/L (3.5-5.1); SODIUM 137 mmol/L (136-145); TCO2 29 mmol/L (25-35)
[2016-05-20] MEDS: MUCOMYST 20% INH SCH (08:00)
[2016-05-20] MEDS: XOPENEX NEB INH SCH ×2 (08:00→11:25)
[2016-05-20] MEDS: NICODERM PATCH TD SCH (08:52)
[2016-05-20] MEDS: LYRICA PO SCH (08:52)
[2016-05-20] MEDS: AMARYL PO SCH ×3 (08:52→09:20)
[2016-05-20] MEDS: MIRALAX PO SCH (08:53)
[2016-05-20] MEDS: LANTUS SUBQ SCH (08:55)
[2016-05-20] MEDS: LOVENOX SUBQ SCH (11:03)
[2016-05-20] MEDS: SODIUM CHLORIDE 0.9% INJ SCH (11:04)
[2016-05-20] MEDS: PROTONIX IV SCH (11:05)
[2016-05-20 11:15] VITALS: BP 167/72
[2016-05-20] MEDS ORDERED: LANTUS SUBQ SCH (11:51)
--- NOTE | 2016-05-20 12:17 | PROGRESS NOTE ---
DATE: 05/20/2016 Ms. Ramirez is breathing better. She definitely feels better. She wants to go I believe to rehab at [facility] but her breathing has improved. She has remained afebrile.Vital signs: Temperature 98.1 degrees, pulse 80, respirations 16, blood pressure 167/72. Lungs: Are clear in all lung tejeda. Cardiovascular: Regular rhythm and rate without murmur or S3. Abdomen: Soft. Skin: Is warm and dry. Urine output is 2400 mL. LAB: From reviewed. The CBC: Hematocrit was stable at 34 and MCV was 79. Her electrolytes today: Sodium 137, potassium 4.6, chloride 97, bicarb 29, BUN 22, creatinine 0.5. Blood sugars have dipped down. She had a 37, 88 and 98 yesterday. ASSESSMENT AND PLAN: 1. Acute on chronic COPD, COPD exacerbation. IV steroids. Supplemental 02. Continue steroid inhaler, bronchodilators. 2. Methicillin-resistant Staph aureus sputum on vancomycin. No sign of active infection. 3. Diabetes mellitus type 2. Blood sugars are well controlled. We decreased the Solu-Medrol and blood sugars dipped down again. 4. Anxiety on Xanax. 5. Peripheral neuropathy, aware from diabetes. 6. DVT prophylaxis. Reviewed orders. Patient on Lantus 25 units subcutaneously b.i.d., vancomycin getting I think 1 g q.12 hours. I think we can stop that. Dulcolax as needed. She gets it per rectum I think at bedtime. Methylprednisone 40 mg IV q.8. I will cut that down to 20 q.12 hours. She is on Amaryl 4 mg b.i.d. Cymbalta 30 mg at bedtime. She is on a nicotine patch. We have counseled on importance of smoking cessation. I think she is ready go to rehab when a bed available. General weakness and deconditioning. Continue physical therapy.
--- NOTE | 2016-05-20 14:03 | DISCHARGE SUMMARY ---
ADMISSION DATE: 05/14/2016 DISCHARGE DATE: 05/20/2016 Presented with shortness of breath. Ms. Ramirez is a 75-year-old white female, history of COPD, diastolic heart failure, nicotine dependence presented to the emergency room with acute onset of shortness of breath. It began the morning of admission, 05/14/2016. She is on BiPAP therapy. It was difficult obtaining history. No family is at the bedside at the time and she was very short of breath. She came to the emergency room for evaluation. Initial O2 saturations were in the high 80s. ABGs done in the emergency room showed hypoxemia and lactic acidosis. Chest x-ray showed minimal basilar edema versus pneumonia [place] [id number]. Has been given antibiotics and placed on BiPAP therapy. States that she does not want to be intubated if that was what were to be required. Blood cultures were obtained. Antibiotics started. PAST MEDICAL HISTORY: 1. Congestive heart failure. 2. Diastolic heart failure. Echocardiogram done in February of this last year showed ejection fraction 65%. No acute valvular disorders. 3. Nicotine dependence. 4. Diabetes mellitus. 5. Hypertension. 6. Chronic pain. 7. Depression. The patient had a pulmonary angiogram on 05/14 and it was no evidence of pulmonary emboli. Clinically she showed steady improvement. Chest x-ray on 05/15 stable chest, ill-defined opacity in the costal phrenic angle and suspect that could be some atelectasis. Chest x-ray followup on 05/18, development of some streaky atelectasis infiltrate in the right hilum. Clinically moving air better. Feeling better and felt she could go to rehab which is where she wanted go on 05/20/2016. DISCHARGE MEDICATIONS: Continue her Tylenol as needed. Mucomyst as needed. I think we will give her DuoNeb p.r.n. Xanax 0.25 mg b.i.d. p.r.n. Dulcolax suppository at bedtime p.r.n. Cymbalta 30 mg at bedtime. Amaryl 4 mg b.i.d. Lantus 12 units subcutaneously b.i.d., which I did recently decreased. Solu-Medrol down to 20 mg q.12h and I think we can give her a Medrol Dosepak. NicoDerm patch 14 mg daily. MiraLAX 17 g b.i.d. Lyrica 150 mg b.i.d. So we will plan on discharging her.
[2016-05-20] MEDS: XANAX PO PRN (15:33)
[2016-05-20] MEDS ORDERED: SOLU-MEDROL IV SCH (23:00)
--- NOTE | 2016-05-27 13:31 | DISCHARGE SUMMARY ---
ADMISSION DATE: 05/14/2016 DISCHARGE DATE: 05/20/2016 DISCHARGE SUMMARY ADDENDUM: Patient admitted for acute respiratory failure secondary to chronic obstructive pulmonary disease exacerbation, pneumonia. Time of admission, the patient was evaluated with white blood cell count of 17,700, lactate of 2.6. Treatment was provided with IV antibiotics, breathing treatments, and steroids. Patient did not drop in blood pressure or evidence of sepsis. I would say that she had signs of systemic inflammatory response, so she had mainly signs and symptoms of localized infection but did not have sepsis with pneumonia.
== END 2016-05-20 15:49 | DRG 189 ==
LOC: EDBD → ED 08:47 → EDIPHOLD 12:53 → ICU 13:32 → 4N 05-18 02:49
PROVIDERS: ATTEND Emergency Medicine
DX: J96.01 Acute respiratory failure with hypoxia (principal); J18.9 Pneumonia, unspecified organism; I11.0 Hypertensive heart disease with heart failure; J44.0 Chronic obstructive pulmonary disease with (acute) lower respiratory infection; I50.32 Chronic diastolic (congestive) heart failure; E11.65 Type 2 diabetes mellitus with hyperglycemia; E11.40 Type 2 diabetes mellitus with diabetic neuropathy, unspecified; J44.1 Chronic obstructive pulmonary disease with (acute) exacerbation; F17.210 Nicotine dependence, cigarettes, uncomplicated; G89.29 Other chronic pain; F32.9 Major depressive disorder, single episode, unspecified; Z66 Do not resuscitate; F41.9 Anxiety disorder, unspecified; B95.61 Methicillin susceptible Staphylococcus aureus infection as the cause of diseases classified elsewhere; Z99.81 Dependence on supplemental oxygen
CPT/HCPCS: 51702; 71010; 71275; 80048; 80053; 80202; 82306; 82550; 82805; 82948; 83605; 83735; 83880; 84439; 84443; 84484; 85025; 85027; 85379; 85610; 85730; 87040; 87070; 87077; 87186; 87205; 93005; 93010; 94640; 94667; 94668; 94761; 96365; 96367; 96372; 96375; C9113; J1100; J1650; J1815; J1940; J2185; J2270; J2920; J2930; J3370; J3475; J7030; J7050; J7512; Q9967; 97116-GP; 97530-GP; S0164

== ENCOUNTER 2016-07-14 23:03 | Inpatient (IN) ==
[2016-07-14] MEDS ORDERED: HUMULIN R SUBQ ONE (23:37)
[2016-07-14] MEDS ORDERED: LANTUS SUBQ ONE (23:49)
[2016-07-14] MEDS ORDERED: AMARYL PO ONE (23:49)
[2016-07-14] MEDS ORDERED: DUONEB (A & A) INH ONE (23:49)
[2016-07-14] MEDS ORDERED: ALBUTEROL NEB INH ONE (23:49)
[2016-07-15] MEDS ORDERED: XANAX PO ONE (00:27)
[2016-07-15] MEDS ORDERED: AMARYL PO ONE (00:30)
[2016-07-15 00:42] LABS: MANUAL DIFF NEEDED? NO
[2016-07-15 00:45] LABS: BASO% 0.3 % (0.0-0.8); HEMATOCRIT 38.7 % (37.0-47.0); HEMOGLOBIN 11.8 g/dL (12.0-16.0); IMM GRAN# 0.02 X1000 (0.0-0.04); IMM GRAN% 0.2 % (0.0-0.5); LYMPH# 0.93 X1000 (1.2-3.4); LYMPH% 8.7 % (20.5-51.1); MCH 24.1 PG (27-31); MCHC 30.5 g/dL (33-37); MONO# 0.76 X1000 (0.11-0.59); MONO% 7.1 % (1.7-9.3); MPV 11.3 FL (7.4-10.4); NEUT% 83.7 % (42.2-75.2); PLT 271 X1000 (130-400)
[2016-07-15 01:05] LABS: ACETONE SERUM NEGATIVE (NEGATIVE)
[2016-07-15 01:16] LABS: AGAP 16; ALBUMIN 3.8 g/dL (3.5-5.0); ALKALINE PHOSPHATASE 104 U/L (32-104); BUN 18 mg/dL (8-22); CHLORIDE 100 mmol/L (98-107); COSMO 308; GOT 32 U/L (10-30); GPT 21 U/L (10-36); POTASSIUM 4.1 mmol/L (3.5-5.1); SODIUM 140 mmol/L (136-145); TCO2 24 mmol/L (25-35); TOTAL BILIRUBIN 0.29 mg/dL (0.20-1.00); TOTAL PROTEIN 6.6 g/dL (6.3-8.3)
[2016-07-15] MEDS ORDERED: HUMULIN R IV ONE (01:47)
[2016-07-15 02:56] LABS: HEMOGLOBIN A1C 8.3 % (4.8-6.0)
[2016-07-15 03:24] LABS: INR 1.03; PROTIME 10.8 Seconds (9.2-11.7)
[2016-07-15 03:31] LABS: PTT HEPARIN PROTOCOL 24.7 Seconds
[2016-07-15] MEDS ORDERED: LYRICA PO ONE (04:01)
--- NOTE | 2016-07-15 04:19 | PROVIDER DOCUMENTATION ---
This chart was entered by Chelsea Colbert Scribe, acting as scribe for Sanjeev Parkinson MD. HPI-General Adult - General Chief Complaint: High Blood Sugar Stated Complaint: CONGESTED, BLOOD SUGAR PROBLEM Time Seen by Provider: 07/14/16 23:34 Source: patient Allergies/Adverse Reactions: Patient Allergies Allergy/AdvReac Type Severity Reaction Status Date / Time amoxicillin trihydrate * Allergy VOMITING Verified 07/15/16 02:16 [From Augmentin] potassium clavulanate * Allergy VOMITING Verified 07/15/16 02:16 [From Augmentin] Home Medications: Home Medication List Medication Instructions Recorded Confirmed Last Taken Type Carvedilol [Coreg] 80 mg PO DAILY 03/01/16 07/15/16 07/14/16 History Duloxetine [Cymbalta] 30 mg PO QHS 03/01/16 07/15/16 07/14/16 History Glimepiride 4 mg PO BID 03/01/16 07/15/16 07/14/16 History Prednisone 10 mg PO DAILY #12 tablet 03/05/16 07/15/16 07/14/16 Rx Alprazolam [Xanax] 0.25 mg PO TID PRN 05/14/16 07/15/16 Unknown History Benzonatate 200 mg PO TID 05/14/16 07/15/16 Unknown History Acetaminophen [Tylenol] 650 mg PO Q6H PRN PRN #0 tablet 05/20/16 07/15/16 Unknown Rx Albuterol 2.5MG/Ipratrop 0.5MG 3 ml INH Q2H PRN PRN #0 neb 05/20/16 07/15/16 Unknown Rx [Duoneb (A & A)] Albuterol 2.5MG/Ipratrop 0.5MG 3 ml INH [id number] #0 neb 05/20/16 07/15/16 Unknown Rx [Duoneb (A & A)] Bisacodyl [Dulcolax] 10 mg IA QHS #0 supp 05/20/16 07/15/16 Unknown Rx Doxycycline 100 mg PO BID 07/15/16 07/15/16 07/14/16 History Furosemide [Furosemide] 20 mg PO DAILY 07/15/16 07/15/16 07/14/16 History Insulin Glargine [Lantus] 30 unit SUBQ HS 07/15/16 07/15/16 07/14/16 History Potassium 100 mg PO DAILY 07/15/16 07/15/16 07/14/16 History Pregabalin [Lyrica] 150 mg PO TID 07/15/16 07/15/16 07/14/16 History Telmisartan [Micardis] 80 mg PO DAILY 07/15/16 07/15/16 07/14/16 History Tramadol HCl [Tramadol HCl] 50 mg PO DAILY 07/15/16 07/15/16 Unknown History Tramadol HCl [Tramadol HCl] 50 mg PO DAILY 07/15/16 07/15/16 07/14/16 History Trazodone [Desyrel] 50 mg PO HS PRN PRN 07/15/16 07/15/16 Unknown History - History of Present Illness -Gen Adult Nature of Presenting Problems: 76 year old F presents to the ED with a cc of high blood sugar. Pt states that she saw Dr. Walden who prescribed her Prednisone and Doxycicline. PT states that she began getting shaking and checked her blood sugar and it was 498. Pt states that she has not taken her night time medications. Severity: reports: mild Onset/Duration: reports: this evening Associated Symptoms: reports: cough, sinus congestion/drainage Similar Symptoms Previously?: No Recently seen or treated by another doctor?: Yes - Diabetes Related Context Context: reports: high blood sugar Review of Systems - Adult - REVIEW OF SYSTEMS - ADULT Constitutional: denies: chills, fever Eyes: reports: no symptoms reported Ears, Nose, Mouth & Throat: reports: no symptoms reported Cardiovascular: denies: chest pain, palpitations Respiratory: reports: cough. denies: shortness of breath Gastrointestinal: reports: no symptoms reported Genitourinary: reports: no symptoms reported Musculoskeletal: reports: no symptoms reported Integumentary: reports: no symptoms reported Neurological: reports: no symptoms reported Psychiatric: reports: no symptoms reported Endocrine: reports: no symptoms reported Hematologic/Lymphatic: reports: no symptoms reported Allergic/Immunologic: reports: no symptoms reported All Other Systems: Reviewed and Negative Past History - Adult - PAST MEDICAL HISTORY-ADULT Review of Records: reports: Nursing Assessment Review, Medications Reviewed Cardiovascular: reports: CHF, HTN Respiratory: reports: COPD Endocrine/Immune: reports: Diabetes - PRIOR SURGERIES/PROCEDURES Surgical/Procedure History: reports: none - IMMUNIZATION STATUS Childhood Immunizations: See Nurse Assessment Flu Vaccine: See Nurse Assessment - FAMILY HISTORY Family History: reviewed, not pertinent - SOCIAL HISTORY Smoking: cigarettes Provider spent 3-5 mins advising pt. on dangers of tobacco.: Discussed manners to quit use, and f/u contacts for add'l counseling. Substance Use: none/never Alcohol Use Frequency: never Physical Exam-General - PHYSICAL EXAM-ADULT Initial Vital Signs Reviewed: Yes - CONSTITUTIONAL General Appearance: appears well, alert, no apparent distress - RESPIRATORY Respiratory: wheezing, other (dyspnic) - CARDIOVASCULAR Cardiovascular: tachycardia - SKIN Integumentary: normal color, normal turgor, warm/dry - PSYCHIATRIC Psych/Mental Status: normal mood/affect, normal thought content, normal thought process, oriented x 3 Progress - PLAN OF CARE/RESULTS Progress/Plan/Lab Results: Vital Signs - 8 hr 07/14/16 23:20 Temperature 98.1 F Pulse Rate 123 H Respiratory Rate 20 Blood Pressure 148/75 O2 Sat by Pulse Oximetry 90 L Orders Category Date Time Status FSBS [Finger Stick Blood Sugar (ED)] DIRECTED Care 07/14/16 23:26 Active CHEST-2 VIEWS [RAD] Stat Exams 07/14/16 23:37 Ordered ACETONE SERUM [CHEM] Stat Lab 07/14/16 23:36 Uncollected CBC WITH ELECTRONIC DIFF [HEME] Stat Lab 07/14/16 23:35 Uncollected CMP [COMPREHENSIVE METABOLIC PANEL] [CHEM] Stat Lab 07/14/16 23:35 Uncollected UA [UA NIMS W/REFLEX CULT] [URINALYSIS] Stat Lab 07/14/16 23:36 Uncollected Albuterol 2.5MG/Ipratrop 0.5MG [Duoneb (A & A)] Med 07/14/16 23:49 Discontinued 3 ml INH NOW ONE Albuterol [Albuterol Neb] Med 07/14/16 23:49 Discontinued 5 mg INH NOW ONE Glimepiride [Amaryl] Med 07/14/16 23:49 Discontinued 4 mg PO NOW ONE Insulin Glargine [Lantus] Med 07/14/16 23:49 Discontinued 30 unit SUBQ NOW ONE Insulin Human Regular [Humulin R] Med 07/14/16 23:37 Discontinued 10 unit SUBQ NOW ONE Aerosol Treatments Routine Oth 07/14/16 23:49 Active Aerosol Treatments Stat Oth 07/14/16 23:49 Active Result Diagrams: 07/15/16 00:30 07/15/16 00:30 - XRAY 1 XRAY Study: Chest Impression: Abnormal (COPD, boderline cardiomegaly) Departure - Departure Time of Disposition Decision: 04:18 DIAGNOSIS: COPD exacerbation Uncontrolled diabetes mellitus Qualifiers: Diabetes mellitus type: type 2 Diabetes mellitus complication status: without complication Diabetes mellitus intermediate card tender insulin use: with intermediate card tender use Qualified Code(s): E11.65 - Type 2 diabetes mellitus with hyperglycemia; Z79.4 - [employer] (current) use of insulin Disposition: ADMITTED INPATIENT 09 Certified Medical Emergency: Emergent Condition: Fair Referrals and Follow-Ups: None,PCP [Primary Care Provider] - - Critical Care Note This patient required my direct personal management.: Yes This chart was documented by the indicated scribe, (Chelsea Colbert Scribe) and accurately reflects the services I performed and decisions made by me, Sanjeev aPrkinson MD, as attested by the provider's signature.
--- NOTE | 2016-07-15 06:23 | Diag Imaging Result Document ---
PROCEDURE NAME: CHEST-2 VIEWS - 07/14/2016 FRONTAL AND LATERAL CHEST, TWO VIEWS: COMPARISON: Compared to 05/18/2016. FINDINGS: The lungs are hyperexpanded. There is increased AP diameter to the chest and there is flattening of the diaphragm. The heart is not enlarged. There is a granuloma in the mid right lung. IMPRESSION: Severe emphysema.
[2016-07-15] MEDS ORDERED: ZOFRAN IV PRN (06:43)
[2016-07-15] MEDS ORDERED: DESYREL PO PRN (06:43)
[2016-07-15] MEDS ORDERED: TYLENOL PO PRN (06:43)
[2016-07-15] MEDS ORDERED: XANAX PO PRN (06:43)
[2016-07-15] MEDS ORDERED: TESSALON PO PRN (06:51)
[2016-07-15] MEDS: HUMULIN R SUBQ SCH ×4 (06:57→21:13)
[2016-07-15] MEDS ORDERED: INSULIN PEN NEEDLES ONE (07:20)
[2016-07-15] MEDS: DUONEB (A & A) INH PRN ×4 (07:47→19:00)
--- NOTE | 2016-07-15 07:58 | HISTORY AND PHYSICAL ---
PRIMARY CARE PROVIDER: Dr. Wood. CHIEF COMPLAINT: Shortness of breath and elevated blood sugar. HISTORY OF PRESENT ILLNESS: Ms. Ramirez is a 76-year-old female with a past medical history most notable for COPD, congestive heart failure, diabetes mellitus and hypertension. She was recently admitted in April, for pneumonia. The patient was discharged to a rehab facility though is currently back at home. She does live alone. The patient reports that approximately 5 days ago she began having sinus drainage and a productive cough with some greenish yellow sputum, wheezing and some shortness of breath. She went to Dr. Wood' s office 2 days ago and he prescribed her doxycycline 100 mg twice a day and prednisone 10 mg daily. He also gave her Hycodan cough syrup. The patient states that after being seen by Dr. Wood that her symptoms did continue. She felt okay, though at approximately 7:30 p.m. last night the patient states that she had a sudden onset of shortness of breath and wheezing. Patient states that she became very hot and anxious and could not catch her breath and called an ambulance for further assistance. Upon arrival to the ER the patient did have an elevated heart rate of 123, blood pressure 148/75, oxygen saturation was 90% via nasal cannula at 3 L. She was given breathing treatments in the ER and her symptoms at this time have improved, though she still does have expiratory wheezing noted in full lung tejeda. Oxygen saturations have improved as well with the last reading at 100% on nasal cannula at 2 L. The patient's serum blood sugar was found to be elevated at 586. She was given a dose of Humulin R 10 units subcutaneous, as well as Lantus at 30 units subcutaneous, and 4 mg of Amaryl in the ER, though this did not improve her glucose much. It only came down to 450. After this she was given additional dose of 5 units of regular insulin IV, and last fingerstick blood sugar was 187 at 4:10. At this time we will admit the patient for further treatment evaluation for COPD exacerbation and uncontrolled diabetes mellitus. REVIEW OF SYSTEMS: A 12 point review of systems was conducted with the patient and all were negative except for pertinent positives mentioned in the HPI. I would like to add the patient denies any fever, body aches, or chills. She denies any dizziness, lightheadedness, headache, chest pain, abdominal pain, nausea, vomiting, diarrhea, dysuria or urinary frequency. She denies any pain, numbness or tingling in her extremities. The patient does report some left shoulder pain, though she states this is where she has a lot of her pain related to her fibromyalgia. This is not a new onset. PAST MEDICAL HISTORY: 1. COPD. 2. Congestive heart failure. 3. Diabetes mellitus type 2. 4. Hypertension. 5. Chronic pain. 6. Depression. 7. Fibromyalgia. PAST SURGICAL HISTORY: 1. Hysterectomy. 2. Cholecystectomy. 3. Bladder tack. SOCIAL HISTORY: The patient was a 1 pack a day smoker since age of 16, though quit smoking 2 months ago. She is a . Her recently in February and she currently lives alone, though does have a daughter who helps with her care. She also has home health that comes and sees her as well. She has no known history of alcohol or drug use. FAMILY HISTORY: Positive for her mother having a history of CHF, diabetes mellitus and cervical cancer. Father has a history of heart disease and pancreatic cancer. She has one brother who had alcoholic cirrhosis and is . She has another brother who has heart disease and has a history of heart transplant. ALLERGIES: Patient has allergies to Augmentin. HOME MEDICATIONS: 1. Potassium chloride extended release 10 mEq p.o. daily. 2. Hycodan syrup 5 mL p.o. q.4-6 hours p.r.n. 3. Lyrica 150 mg p.o. b.i.d. 4. Coreg 50 mg p.o. daily. 5. Trazodone 50 mg p.o. at bedtime p.r.n. 6. Xanax 0.25 mg p.o. t.i.d. p.r.n. 7. DuoNeb treatments four times a day nebulized. 8. Lasix 20 mg p.o. daily. 9. Doxycycline 100 mg p.o. b.i.d. 10. Micardis 80 mg p.o. daily. 11. Dulcolax 10 mg rectally at bedtime. 12. Glimepiride 4 mg p.o. b.i.d. 13. Cymbalta 30 mg p.o. at bedtime. 14. Prednisone 10 mg p.o. daily. 15. Lantus 30 units subcutaneous at bedtime. DIAGNOSTIC DATA LABORATORY RESULTS: White blood cell count 10.6, hemoglobin 11.8, hematocrit 38.7, platelet count 271,000. PT 10.8, INR 1.03, PTT 24.7, sodium 140, potassium 4.1, chloride 100, bicarb 24, BUN is 18, creatinine 0.9, glucose 586, though last fingerstick blood sugar showed a glucose of 187, hemoglobin A1c 8.3, calcium 10. Liver function tests within normal limits except the AST was slightly elevated at 32. Serum acetone level was negative. Chest x-ray showed finding suggestive for COPD and mild cardiomegaly, though we are awaiting official radiology over-read. PHYSICAL EXAMINATION: VITAL SIGNS: Temperature 98.1 degrees, heart rate 113, respirations 20, blood pressure 154/72, oxygen saturations 100% nasal cannula at 2 L. GENERAL: Ms. Ramirez is a pleasant 76-year-old, female, who is resting in the ER stretcher in no acute distress. She was awake, alert and able answer all questions appropriately. HEENT: Head is atraumatic, normocephalic. Pupils are equal, round, react to light 3 mm bilaterally and brisk. Oral mucosa is moist. NECK: Supple. Trachea midline. CARDIOVASCULAR: Patient has a normal S1, S2. No murmurs, gallops, rubs appreciated with a slightly tachycardic rate, but regular. PULMONARY: Patient has symmetrical chest expansion bilaterally. Lung sounds had expiratory wheezing noted in bilateral lung tejeda. ABDOMEN: Soft, nontender, nondistended. Bowel sounds were present in all 4 quadrants and normoactive. EXTREMITIES: No cyanosis, clubbing, or edema. Pulse, motor and sensory were intact in all extremities. Pedal pulses are 2+ bilaterally. INTEGUMENTARY: Patient's skin is pink, warm, dry, and intact. No lesions or sores noted. NEUROLOGICAL: Patient is alert, oriented x3. Cranial nerves 2-12 grossly intact. ASSESSMENT/PLAN: 1. Chronic obstructive pulmonary disease exacerbation. For this we will have patient for scheduled q.4 hours DuoNeb treatments. We will place her on IV Solu-Medrol. We will continue her doxycycline 100 mg b.i.d. We will also continue with aggressive pulmonary toilet, oxygen therapy, and we will monitor respiratory status closely. 2. Uncontrolled diabetes mellitus type 2. Patient's hemoglobin A1c was 8.3. Her elevated serum glucose is likely secondary to the patient recently being prescribed a steroid. We will adjust her Lantus dose. We will keep 30 units subcutaneous at night. We will add on Lantus 15 units subcutaneous in the morning. We will hold her Amaryl at this time and place her on a moderate dose sliding scale regular insulin, and we will closely monitor her glucose levels. Continue to follow. 3. Congestive heart failure. Will continue her Coreg and Lasix and will continue to follow. 4. Hypertension. Will continue her Coreg and Micardis. 5. Depression. We will continue her Cymbalta. 6. Fibromyalgia. We will continue her Lyrica. 7. The patient will be placed on medical floor telemetry. She will have vital signs every 4 hours. 8. Deep venous thrombosis prophylaxis provided with SCDs. She will be on a diabetic diet. We will repeat a CBC and BMP tomorrow. We will also do incentive spirometry q.4 hours while awake. 9. Orders and recommendations pending hospital course, diagnostic studies and physician evaluation. Dictated by VIPUL Berrios for Shaun Jimenez MD cc: Shaun Jimenez MD MTDD
[2016-07-15] MEDS: KLOR-CON PO SCH (08:21)
[2016-07-15] MEDS: LASIX PO SCH (08:21)
[2016-07-15] MEDS: SOLU-MEDROL IV SCH ×3 (08:21→23:48)
[2016-07-15] MEDS: MICARDIS PO SCH (08:21)
[2016-07-15] MEDS: DOXYCYCLINE PO SCH ×2 (08:22→21:12)
[2016-07-15] MEDS: LANTUS SUBQ SCH (08:30)
[2016-07-15] MEDS ORDERED: CARVEDILOL 50 MG PO SCH (09:00)
[2016-07-15 11:23] LABS: IRON SATURATION 4 %; TIBC 378 ug/dL; TOTAL IRON 15 ug/dL (49-151); UNBOUND IRON 363 ug/dL (112-346)
[2016-07-15] MEDS ORDERED: COREG CR PO SCH ×2 (11:45→13:57)
[2016-07-15] MEDS ORDERED: LYRICA PO SCH ×2 (13:00→21:15)
[2016-07-15] MEDS ORDERED: VENOFER 300 MG in NS 250 ML IV ONE (13:58)
[2016-07-15] MEDS ORDERED: ZITHROMAX 500 MG/NS 500 MG/250 ML IVPB IV SCH (14:00)
[2016-07-15] MEDS: NICODERM PATCH TD SCH (16:29)
--- NOTE | 2016-07-15 18:01 | PROGRESS NOTE ---
DATE: 07/15/2016 SUBJECTIVE: Today Ms. Ramirez refers to be doing a little better. Still has some wheezing and cough. OBJECTIVE: Vital signs: Blood pressure is 158/59, pulse of 103. Respiration is 16. Temperature is 98.2. General exam: Ms. Ramirez is a 76-year-old female. She is in bed. Mild distress. Mucosa is slightly pale, anicteric, and acyanotic. Neck: Supple. Chest: Air entry is bilaterally reduced. There is diffuse bilateral end expiratory wheezing and there is prolonged expiratory phase of respiration. Cardiovascular: Regular rate and rhythm. There are no murmurs, no rubs, no gallops. Abdomen: Soft, nontender. Bowel sounds are present. Central nervous system: Patient is alert and oriented x4. There is no focal neurological deficit. LABORATORY DATA: WBC is 10.67. Hemoglobin is 11.8, platelet count of 271. Chemistry is reviewed. Glucose was 586 on presentation. It is currently 325. Iron studies are consistent with iron deficiency anemia. IMAGING: A chest x-ray was done, which showed lungs hyperexpanded, AP diameter in the chest. There is flattening of diaphragm consistent with severe emphysema. ASSESSMENT: 1. Acute hypoxemic respiratory failure secondary to chronic obstructive pulmonary disease exacerbation. 2. Uncontrolled diabetes mellitus with presenting A1C of 8.3. 3. Iron deficiency anemia. 4. Hypertension. 5. Depression with fibromyalgia noted. PLAN: In general, we are going to continue with the current nebulization, adequate pulmonary toilet. We will cut down on the carvedilol because of the acute bronchospasms. We will continue with the steroid. Patient is currently on doxycycline p.o. She was on this by her primary care, and that did not seem to have really improved, so I will add azithromycin also to help with exacerbation and will give the patient IV infusion for the iron deficiency. Of note, patient refers to have had this for a very long time. She already has been following up with Dr. Méndez. Last colonoscopy was about four years ago, and there was not any abnormality. cc: Shan Barksdale MD
[2016-07-15] MEDS ORDERED: DULCOLAX PR SCH (21:00)
[2016-07-15] MEDS ORDERED: LANTUS SUBQ SCH (21:00)
[2016-07-15] MEDS ORDERED: CYMBALTA PO SCH (21:00)
[2016-07-16 06:17] LABS: BASO% 0.1 % (0.0-0.8); HEMATOCRIT 33.8 % (37.0-47.0); HEMOGLOBIN 10.3 g/dL (12.0-16.0); IMM GRAN# 0.02 X1000 (0.0-0.04); IMM GRAN% 0.2 % (0.0-0.5); LYMPH# 0.94 X1000 (1.2-3.4); LYMPH% 9.7 % (20.5-51.1); MANUAL DIFF NEEDED? YES; MCHC 30.5 g/dL (33-37); MCV 78.8 FL (81-99); MONO# 0.22 X1000 (0.11-0.59); MONO% 2.3 % (1.7-9.3); MPV 11.1 FL (7.4-10.4); NEUT% 87.7 % (42.2-75.2); PLT 255 X1000 (130-400); RBC 4.29 XMIL (4.2-5.4)
[2016-07-16 06:36] LABS: BANDS 2 % (0-1); LYMPHS 8 % (21-51); MONO 2 % (1-9)
[2016-07-16] MEDS: HUMULIN R SUBQ SCH ×2 (06:44→12:15)
[2016-07-16 06:47] LABS: AGAP 10; BUN 26 mg/dL (8-22); CALCIUM 9.6 mg/dL (8.8-10.2); CHLORIDE 101 mmol/L (98-107); COSMO 289; POTASSIUM 3.9 mmol/L (3.5-5.1); SODIUM 138 mmol/L (136-145); TCO2 27 mmol/L (25-35)
[2016-07-16] MEDS: DUONEB (A & A) INH PRN ×2 (08:10→11:41)
[2016-07-16] MEDS ORDERED: LYRICA PO SCH (09:00)
[2016-07-16] MEDS: MICARDIS PO SCH (09:58)
[2016-07-16] MEDS: KLOR-CON PO SCH (09:58)
[2016-07-16] MEDS: LASIX PO SCH (09:58)
[2016-07-16] MEDS: NICODERM PATCH TD SCH (09:58)
[2016-07-16] MEDS: LANTUS SUBQ SCH (09:59)
[2016-07-16] MEDS: DOXYCYCLINE PO SCH (10:00)
[2016-07-16 11:01] VITALS: BP 153/68
[2016-07-16] MEDS ORDERED: FERROUS SULFATE PO SCH (21:00)
[2016-07-17] MEDS ORDERED: ZITHROMAX PO SCH (09:00)
--- NOTE | 2016-07-17 12:08 | DISCHARGE SUMMARY ---
ADMISSION DATE: 07/15/2016 DISCHARGE DATE: 07/16/2016 CONSULTATIONS: None. PERTINENT PROCEDURES: Chest x-ray showed severe emphysema. DISCHARGE DIAGNOSES: 1. Acute hypoxemic respiratory failure secondary to chronic obstructive pulmonary disease exacerbation, improved. 2. Uncontrolled diabetes mellitus with presenting A1c of 8.3. 3. Iron-deficiency anemia, stable. 4. Hypertension, stable. 5. Depression, stable. 6. Fibromyalgia, stable. HOSPITAL COURSE: Ms. Ramirez is a 76-year-old female with past medical history most notable for COPD, CHF, diabetes, hypertension, recently admitted on April 2016 for pneumonia. Discharged to rehab facility and is currently back at home. She does live alone. She came to the ED after reporting 5 days of having sinus drainage and a productive cough with some greenish- yellowish sputum, wheezing and shortness of breath. She went to see Dr. Wood in the office 2 days prior to her admission, was prescribed doxycycline and prednisone and hydrocodone syrup. After seeing Dr. Wood, her symptoms did continue. During the night of her admission, she had a sudden onset of shortness of breath and wheezing. She became very hot and anxious and could not catch her breath. She called an ambulance who brought her to the ED. She was found to have an elevated heart rate of 123, blood pressure 148/75, O2 saturations were 90% on 3 L nasal cannula. She was initiated on breathing treatments. Her symptoms at the time improved. She did still have some expiratory wheezing noted in all lung tejeda. Her oxygen saturation had improved and was 100% on 2 L nasal cannula. Her serum blood sugar was found to be elevated at 586. She was given a dose of Humulin-R 2 units with Lantus 30 units and 4 mg of Amaryl in the ED. The patient had very little improvement in her glucose. She did receive an additional 5 units of regular insulin IV. Her blood sugar came down to 187. Patient was admitted for COPD exacerbation with acute hypoxemic respiratory failure. She was started on bronchodilators, supplemental O2, aggressive pulmonary toilet and continued on her doxycycline. Her A1c was 8.3. She had titrations in her home medication. Her carvedilol was decreased because of acute bronchospasm. She was continued on steroids. Azithromycin was added to help with exacerbation, and the patient was given IV infusion for iron deficiency. She refers to having this for very long time, and she has been following Dr. Méndez. Her last colonoscopy was 4 years ago without any abnormality. Ms. Ramirez referred to doing a little better. She was still having some wheezes and cough; however, she was very insistent on going home today. Patient is being discharged home. VITAL SIGNS: Temperature is 98.2 degrees, heart rate 88, respirations 18, blood pressure 153/68, satting 100% on 2 L nasal cannula. DISCHARGE DIET: Diabetic. DISCHARGE MEDICATIONS: As per Dr. Barksdale. Please see MAR. FOLLOWUP: Patient is being discharged home. She will need to complete her full course of antibiotics. She will need to follow up with her primary care physician, Dr. Pankaj Wood, in 1- 2 weeks. Patient can return to the ED for any worsening of symptoms. TIME SPENT: Discharge time 30 minutes. Dictated by VIPUL Cole for Shan Barksdale MD cc: MD Pankaj Crespo MD
== END 2016-07-16 15:19 | disposition home or self-care (01) ==
LOC: ED 23:03 → SUATTDRO 07-15 05:57 → 4N 07-15 05:57
PROVIDERS: ATTEND Internal Medicine

== ENCOUNTER 2016-07-21 23:28 | Inpatient (IN) ==
[2016-07-22] MEDS ORDERED: DUONEB (A & A) INH ONE (00:02)
[2016-07-22 00:29] LABS: MANUAL DIFF NEEDED? NO
[2016-07-22] MEDS ORDERED: NS 1,000 ML IV ONE (01:30)
[2016-07-22] MEDS ORDERED: LEVAQUIN 500 MG/D5W 500 MG/100 ML IVPB IV ONE (01:30)
[2016-07-22] MEDS ORDERED: NS 1,000 ML ONE (02:37)
[2016-07-22] MEDS ORDERED: LEVAQUIN 500 MG/D5W 500 MG/100 ML IVPB ONE (02:37)
[2016-07-22 02:58] LABS: AGAP 12; ALBUMIN 3.7 g/dL (3.5-5.0); ALKALINE PHOSPHATASE 84 U/L (32-104); BUN 14 mg/dL (8-22); CALCIUM 10.3 mg/dL (8.8-10.2); CHLORIDE 98 mmol/L (98-107); CK PROFILE 42 U/L (24-173); COSMO 289; GOT 118 U/L (10-30); GPT 54 U/L (10-36); INR 1.04; MAGNESIUM 1.7 mg/dL (1.5-2.7); PTT 23.1 Seconds (22.0-36.0); SODIUM 140 mmol/L (136-145); TCO2 30 mmol/L (25-35)
[2016-07-22 04:11] LABS: BASO% 0.4 % (0.0-0.8); EOS# 0.18 X1000 (0.0-0.7); EOS% 1.7 % (0.0-10.0); HEMATOCRIT 40.7 % (37.0-47.0); HEMOGLOBIN 12.1 g/dL (12.0-16.0); IMM GRAN# 0.07 X1000 (0.0-0.04); IMM GRAN% 0.7 % (0.0-0.5); LYMPH# 1.41 X1000 (1.2-3.4); LYMPH% 13.3 % (20.5-51.1); MCH 24.2 PG (27-31); MCHC 29.7 g/dL (33-37); MCV 81.2 FL (81-99); MONO# 0.75 X1000 (0.11-0.59); MONO% 7.1 % (1.7-9.3); MPV 11.5 FL (7.4-10.4); NEUT% 76.8 % (42.2-75.2); PLT 299 X1000 (130-400); RBC 5.01 XMIL (4.2-5.4)
--- NOTE | 2016-07-22 04:36 | HISTORY AND PHYSICAL ---
CHIEF COMPLAINT: Cough and shortness of breath x2 days. HISTORY OF PRESENTING ILLNESS: A 76-year-old female with a history of COPD on home oxygen, diabetes mellitus type 2, and hypertension who presented to the emergency department with a 2 day history of worsening shortness of breath and a productive cough. She states that the cough was bringing out brownish material and her shortness of breath was worse so as that she could not tolerate. Subsequently, she had come to the emergency department. At the ER, she was evaluated. She had imaging done which did show a right middle lobe infiltrate, as per ER physician. Due to these findings, it was thought that she would need hospitalization for further management. At the time of my examination, she had denied any headache, nausea, vomiting, diarrhea, chest pain, hemoptysis, or melena but complained of shortness of breath and having a cough. PAST MEDICAL HISTORY: Include diabetes mellitus type 2, congestive heart failure, hypertension, COPD on home oxygen at 3 L. PAST SURGICAL HISTORY: Cholecystectomy, hysterectomy, appendectomy, bladder tack. ALLERGIES: To Augmentin. CURRENT MEDICATIONS: As listed in the MAR. SOCIAL HISTORY: She is a former smoker, quit about 2 months ago. Denies any history of alcohol or illicit drug use. She is fairly independent. FAMILY HISTORY: Positive for coronary artery disease in her mother and father. REVIEW OF SYSTEMS: Twelve point review of systems listed as in the HPI. Other systems negative. PHYSICAL EXAMINATION: GENERAL: Cooperative, friendly, elderly female. She is resting more comfortably now. VITAL SIGNS: Temperature 98.3 degrees, pulse 108, respirations 18, blood pressure 136/85. HEENT: Atraumatic, normocephalic. Extraocular movements intact. PERRLA. NECK: No masses. CHEST: Bibasilar rales. CARDIOVASCULAR: Regular rate and rhythm. ABDOMEN: Soft. Positive bowel sounds. Nontender. EXTREMITIES: No edema. NEUROLOGIC: She is awake, alert, oriented x3. : No bladder distention. SKIN: Warm and good turgor. LABORATORIES AND STUDIES: Still pending. ASSESSMENT: A 76-year-old, elderly female with a history of chronic obstructive pulmonary disease, diabetes mellitus type 2, and hypertension who had presented to the emergency department with a 2 day history of worsening cough and shortness of breath. She had imaging done in the emergency room which was consistent with pneumonia. She will need hospitalization for further management. 1. Suspected pneumonia. 2. Chronic obstructive pulmonary disease. 3. Diabetes mellitus type 2. 4. Hypertension. PLAN: 1. We will admit the patient to the medical floor with telemetry. 2. We will check blood cultures and start patient on IV antibiotics. 3. We will continue with DuoNebs. 4. We will monitor blood glucose and put patient on sliding scale insulin regimen. 5. We will monitor blood pressure and resume antihypertensive agents. 6. We will put the patient on DVT prophylaxis with SCD. 7. We will continue to follow and reassess. cc: MD Shaun Reynolds MD
--- NOTE | 2016-07-22 05:20 | EKG Report ---
Test Performed on : 07/21/2016 11:27:45 PM Test Reason : SOB Blood Pressure : / mmHG Vent. Rate : 100 BPM Atrial Rate : 100 BPM P-R Int : 148 ms QRS Dur : 136 ms QT Int : 368 ms P-R-T Axes : 087 049 146 degrees QTc Int : 474 ms Sinus rhythm. with premature supraventricular complexes. Left ventricular hypertrophy with QRS widening and repolarization abnormality Cannot rule out Anteroseptal infarct , age undetermined Abnormal ECG When compared with ECG of 16-MAY-2016 18:01, premature supraventricular complexes. are now present Left bundle branch block is no longer present Minimal criteria for Anteroseptal infarct are now present Unconfirmed Result
[2016-07-22] MEDS: XANAX PO PRN ×2 (06:10→21:50)
[2016-07-22] MEDS: HUMULIN R SUBQ SCH ×4 (07:41→21:43)
[2016-07-22] MEDS: DUONEB (A & A) INH SCH ×5 (07:59→22:37)
[2016-07-22] MEDS: COREG CR PO SCH (08:35)
[2016-07-22] MEDS: LYRICA PO SCH ×2 (08:35→21:41)
[2016-07-22] MEDS: LASIX PO SCH (08:35)
[2016-07-22] MEDS: FERROUS SULFATE PO SCH ×2 (08:35→21:41)
[2016-07-22] MEDS: MUCINEX PO SCH ×2 (08:35→21:42)
[2016-07-22] MEDS: MICARDIS PO SCH (08:35)
[2016-07-22] MEDS: PREDNISONE PO SCH (08:35)
--- NOTE | 2016-07-22 08:59 | Diag Imaging Result Document ---
PROCEDURE NAME: CHEST-1 VIEW - 07/21/2016 SINGLE FRONTAL RADIOGRAPH OF THE CHEST: COMPARISON: 07/14/2016. FINDINGS: The lungs appear hyperinflated similar to the previous study. There appear to be increased lung markings centrally around the right hilar region. Perihilar infiltrate versus atelectasis should be considered. Note, however, that this has been seen on several previous studies and this finding may be chronic. No new consolidations are identified. Cardiac silhouette is stable. IMPRESSION: Stable chest.
--- NOTE | 2016-07-22 12:21 | PROGRESS NOTE ---
DATE: 07/22/2016 Ms. Ramirez is a 76-year-old who was admitted last night. She has a history of COPD on home O2, diabetes mellitus type 2, hypertension who presented to the emergency room with 2-day history of worsening short of breath and productive cough. States that the cough was bringing up brownish material. She complained of shortness of breath worse so that she could not tolerate it. She said she felt she coughed up some blood too, and subsequently came to the emergency room. Evaluation and imaging and showed right middle lobe infiltrate. Due to these findings, I thought she should be hospitalized for management. PAST MEDICAL HISTORY: 1. Diabetes mellitus type 2. 2. Congestive heart failure. 3. Hypertension. 4. COPD on home O2 at 3 L. 5. Chronic hypoxia. PAST MEDICAL HISTORY: 1. Cholecystectomy. 2. Hysterectomy. 3. Appendectomy. 4. Bladder tack in the past. 5. The patient is still coughing. She complains of some diarrhea. She was coughing and she had some loose stool this morning. PHYSICAL EXAMINATION: Vital signs: Temperature 98.3 degrees, pulse 80, respirations 18, blood pressure 158/104. HEENT: Pupils are equal. Lungs: Clear in all lung tejeda. Decreased breath sounds both bases. She does have end expiratory wheezing throughout. Cardiovascular: Regular rhythm and rate without murmur or S3. Abdomen: Soft. Skin: Is warm and dry. LABORATORY: The chest x-ray, lungs hyperinflated similar to previous exam. Appear to be increased lung markings around right hilar region. Perihilar infiltrate versus atelectasis considered. ASSESSMENT AND PLAN: 1. Right middle lobe lung pneumonia, underlying chronic obstructive pulmonary disease exacerbation. Continue bronchodilators and supplemental O2. BiPAP if needed. She is on prednisone 10 mg a day. Started on Levaquin 750 mg IV daily. 2. Diabetes mellitus type 2. We will watch pattern sugars. Continue her Lantus insulin. 3. Keep her fluids that test 75 mL an hour for now. 4. Other comorbidities that need to be aware of it: She of course has underlying chronic obstructive pulmonary disease and history hypertension. I have reviewed her orders. I do not see any changes at this point. 5. For the diarrhea or loose stools, we will send stool off for C. difficile. cc: Mega Fam MD
[2016-07-22] MEDS ORDERED: INSULIN PEN NEEDLES ONE (16:04)
[2016-07-22] MEDS ORDERED: LANTUS SUBQ SCH (21:00)
[2016-07-22] MEDS: CYMBALTA PO SCH (21:42)
[2016-07-23] MEDS: LANTUS SUBQ SCH ×2 (00:42→09:26)
[2016-07-23] MEDS: DUONEB (A & A) INH SCH ×6 (03:45→22:55)
[2016-07-23] MEDS: LEVAQUIN 750 MG/D5W 750 MG/150 ML IVPB IV SCH (06:28)
[2016-07-23] MEDS: HUMULIN R SUBQ SCH ×4 (06:30→20:42)
[2016-07-23 07:12] LABS: BASO% 0.2 % (0.0-0.8); EOS# 0.11 X1000 (0.0-0.7); EOS% 1.2 % (0.0-10.0); HEMATOCRIT 37.2 % (37.0-47.0); HEMOGLOBIN 11.3 g/dL (12.0-16.0); IMM GRAN# 0.04 X1000 (0.0-0.04); IMM GRAN% 0.4 % (0.0-0.5); LYMPH# 1.69 X1000 (1.2-3.4); MANUAL DIFF NEEDED? YES; MCH 24.4 PG (27-31); MCHC 30.4 g/dL (33-37); MCV 80.2 FL (81-99); MONO# 1.02 X1000 (0.11-0.59); MONO% 11.4 % (1.7-9.3); MPV 10.9 FL (7.4-10.4); NEUT% 67.8 % (42.2-75.2); PLT 242 X1000 (130-400); RBC 4.64 XMIL (4.2-5.4)
[2016-07-23 07:21] LABS: AGAP 10; BUN 27 mg/dL (8-22); CALCIUM 9.9 mg/dL (8.8-10.2); CHLORIDE 99 mmol/L (98-107); COSMO 293; POTASSIUM 3.9 mmol/L (3.5-5.1); SODIUM 139 mmol/L (136-145); TCO2 30 mmol/L (25-35)
--- NOTE | 2016-07-23 07:31 | PROGRESS NOTE ---
DATE: 07/23/2016 SUBJECTIVE: Ms. Ramirez feels much better today. Breathing comfortably. Had a pretty good night, slept some. PHYSICAL EXAMINATION: Vital Signs: Temperature 97.5 degrees, pulse 99, respirations 20, blood pressure 140/63. HEENT: Pupils are equal and round. Respiratory: Lungs are clear in all lung tejeda. Cardiovascular Examination: Regular rhythm and rate without murmur or S3. Abdomen: Soft. Skin: Is warm and dry. Is and Os: Urine output over 3 L. LABS: Pending this morning. Blood sugars 153, 259, to 311 but blood sugar did drop down to 28 so we are going to adjust her insulin. ASSESSMENT AND PLAN: 1. Diabetes mellitus type 2. 2. Congestive heart failure. 3. Hypertension. 4. Chronic obstructive pulmonary disease. 5. Chronic hypoxia. Presented with right middle lobe pneumonia. Continue present treatment. We will check CBC and electrolytes again tomorrow. Repeat a chest x-ray in the morning. 6. Review of orders. I do not see any changes, on Levaquin 750 mg intravenous every 24 hours. We will adjust her insulin, just give her Lantus 15 in the morning and watch her sugars. cc: Mega Fam MD
[2016-07-23 08:09] LABS: EOS 2 % (1-10); LYMPHS 16 % (21-51)
--- NOTE | 2016-07-23 08:52 | Diag Imaging Result Document ---
PROCEDURE NAME: CHEST-PORTABLE - 07/23/2016 SINGLE FRONTAL RADIOGRAPH OF THE CHEST: COMPARISON: 07/22/2016. FINDINGS: The increased lung markings around the right hilum have improved. No new consolidations are identified. Cardiac silhouette is stable. IMPRESSION: Interval improvement of the increased right perihilar lung markings seen on the previous study.
[2016-07-23] MEDS: FERROUS SULFATE PO SCH ×2 (09:25→20:30)
[2016-07-23] MEDS: COREG CR PO SCH (09:25)
[2016-07-23] MEDS: LASIX PO SCH (09:26)
[2016-07-23] MEDS: PREDNISONE PO SCH (09:26)
[2016-07-23] MEDS: MICARDIS PO SCH (09:26)
[2016-07-23] MEDS: MUCINEX PO SCH ×2 (09:33→20:30)
[2016-07-23] MEDS: LYRICA PO SCH ×2 (09:33→20:30)
[2016-07-23] MEDS: CYMBALTA PO SCH (20:30)
[2016-07-23] MEDS: DESYREL PO PRN (20:42)
[2016-07-23] MEDS: XANAX PO PRN (20:42)
[2016-07-24] MEDS: DUONEB (A & A) INH SCH ×6 (03:48→22:44)
[2016-07-24] MEDS: LEVAQUIN 750 MG/D5W 750 MG/150 ML IVPB IV SCH (04:46)
[2016-07-24] MEDS: HUMULIN R SUBQ SCH ×4 (06:43→21:24)
[2016-07-24] MEDS: LANTUS SUBQ SCH (08:39)
[2016-07-24] MEDS: PREDNISONE PO SCH (08:39)
[2016-07-24] MEDS: FERROUS SULFATE PO SCH ×2 (08:39→21:17)
[2016-07-24] MEDS: MUCINEX PO SCH ×2 (08:39→21:18)
[2016-07-24] MEDS: LYRICA PO SCH ×2 (08:39→21:18)
[2016-07-24] MEDS: MICARDIS PO SCH (08:40)
[2016-07-24] MEDS: LASIX PO SCH (08:40)
[2016-07-24] MEDS: COREG CR PO SCH (08:40)
[2016-07-24 09:14] LABS: BASO% 0.4 % (0.0-0.8); EOS# 0.18 X1000 (0.0-0.7); EOS% 1.8 % (0.0-10.0); HEMATOCRIT 36.5 % (37.0-47.0); HEMOGLOBIN 10.9 g/dL (12.0-16.0); IMM GRAN# 0.08 X1000 (0.0-0.04); IMM GRAN% 0.8 % (0.0-0.5); LYMPH# 1.84 X1000 (1.2-3.4); LYMPH% 18.8 % (20.5-51.1); MANUAL DIFF NEEDED? NO; MCH 24.3 PG (27-31); MCHC 29.9 g/dL (33-37); MCV 81.5 FL (81-99); MONO# 1.09 X1000 (0.11-0.59); MONO% 11.1 % (1.7-9.3); MPV 10.2 FL (7.4-10.4); NEUT% 67.1 % (42.2-75.2); PLT 218 X1000 (130-400); RBC 4.48 XMIL (4.2-5.4)
[2016-07-24 09:52] LABS: AGAP 12; BUN 32 mg/dL (8-22); CHLORIDE 99 mmol/L (98-107); COSMO 290; POTASSIUM 4.3 mmol/L (3.5-5.1); SODIUM 139 mmol/L (136-145); TCO2 28 mmol/L (25-35)
[2016-07-24] MEDS ORDERED: LANTUS SUBQ SCH (14:44)
--- NOTE | 2016-07-24 15:00 | PROGRESS NOTE ---
DATE: 07/24/2016 SUBJECTIVE: This patient feels much better today. She is breathing comfortably. When I examined this patient she was sitting on a chair and reading a book but she still has some shortness of breath and mild dizziness when she tried to do some kind of physical activity. OBJECTIVE: Vital Signs: Temperature 98.2 degrees, pulse 79, respiratory rate 19, blood pressure 118/69, O2 saturation 98 on 2 L of nasal cannula. HEENT: Head normocephalic. No trauma. PERRLA. Neck: Supple. No JVD. No masses. Central trachea. Chest: Decreased breath sounds globally with rhonchi at the level of the right middle lung. No wheezing. Abdomen: Soft, nontender, nondistended. No hepatosplenomegaly. Cardiovascular: RRR. No murmurs. Extremities: No edema. No clubbing. No cyanosis. Neurological: The patient is alert and oriented x3. No focal neurological deficits. LABORATORY: WBC 9.8, hemoglobin 10.9, hematocrit 36.5, platelets 218,000. Sodium 139, potassium 4.3, chloride 99, bicarbonate 28, BUN 32, creatinine 0.8, glucose 205. ASSESSMENT AND PLAN: 1. Right middle lung pneumonia. Apparently this patient has been having chronic hypoxia. Continue with the same management for now. We will continue checking the CBC and CMP. This patient is on Levaquin. I will continue with the same treatment. 2. Chronic obstructive pulmonary disease. Continue with the same management. She is getting better. Continue with oxygen supplementation as well. 3. Diabetes mellitus type 2. This patient was placed on the Lantus yesterday but I will increase the dose of Lantus tomorrow. She received at least more than 25 units in the past 24 hours so I will increase the Lantus from 15 to 25. 4. Congestive heart failure not in exacerbation. Continue with the same management. 5. Hypertension stable. cc: Wallace Khalil MD
[2016-07-24] MEDS: CYMBALTA PO SCH (21:18)
[2016-07-24] MEDS: XANAX PO PRN (21:23)
[2016-07-24] MEDS: DESYREL PO PRN (21:24)
[2016-07-25] MEDS: DUONEB (A & A) INH SCH ×6 (03:56→23:12)
[2016-07-25] MEDS: LEVAQUIN 750 MG/D5W 750 MG/150 ML IVPB IV SCH (04:26)
[2016-07-25] MEDS: HUMULIN R SUBQ SCH ×4 (06:06→21:30)
[2016-07-25 07:05] LABS: BASO% 0.4 % (0.0-0.8); EOS% 1.9 % (0.0-10.0); HEMATOCRIT 35.7 % (37.0-47.0); HEMOGLOBIN 10.8 g/dL (12.0-16.0); IMM GRAN# 0.09 X1000 (0.0-0.04); IMM GRAN% 0.9 % (0.0-0.5); LYMPH# 2.41 X1000 (1.2-3.4); LYMPH% 22.9 % (20.5-51.1); MANUAL DIFF NEEDED? NO; MCH 24.6 PG (27-31); MCHC 30.3 g/dL (33-37); MCV 81.3 FL (81-99); MONO# 1.03 X1000 (0.11-0.59); MONO% 9.8 % (1.7-9.3); MPV 11.1 FL (7.4-10.4); NEUT% 64.1 % (42.2-75.2); PLT 143 X1000 (130-400); RBC 4.39 XMIL (4.2-5.4)
[2016-07-25 07:31] LABS: AGAP 12; BUN 38 mg/dL (8-22); CALCIUM 9.7 mg/dL (8.8-10.2); CHLORIDE 98 mmol/L (98-107); COSMO 287; POTASSIUM 4.3 mmol/L (3.5-5.1); SODIUM 137 mmol/L (136-145); TCO2 27 mmol/L (25-35)
[2016-07-25 08:21] LABS: HEMOGLOBIN A1C 7.8 % (4.8-6.0)
[2016-07-25] MEDS: LANTUS SUBQ SCH (09:35)
[2016-07-25] MEDS: LASIX PO SCH (09:36)
[2016-07-25] MEDS: MUCINEX PO SCH ×2 (09:36→21:32)
[2016-07-25] MEDS: COREG CR PO SCH (09:36)
[2016-07-25] MEDS: FERROUS SULFATE PO SCH ×2 (09:36→21:32)
[2016-07-25] MEDS: PREDNISONE PO SCH (09:36)
[2016-07-25] MEDS: LYRICA PO SCH ×2 (09:37→21:32)
[2016-07-25] MEDS: MICARDIS PO SCH (09:37)
[2016-07-25] MEDS: NS 1,000 ML IV SCH (14:44)
--- NOTE | 2016-07-25 14:50 | PROGRESS NOTE ---
DATE: 07/25/2016 SUBJECTIVE: This patient states that she is feeling better. She is breathing comfortably. She still has some shortness of breath mostly when she talks and generalized weakness. This patient told me that she already stopped smoking last year, but she smoked for more than 50 years. I believe she can be discharged in 1 or 2 days with home health and physical therapy. OBJECTIVE: Vital Signs: Temperature 97.6 degrees, pulse 88, respiratory rate 17, blood pressure 121/38, oxygen saturation 99 on 2 L of nasal cannula. HEENT: Head normocephalic. No trauma. PERRLA. Neck supple. No JVD. No masses. Central trachea. Chest: Decreased breath sounds globally with rhonchi at the level of the right middle and lower lung. No wheezing. Abdomen soft, nontender, nondistended. No hepatosplenomegaly. Cardiovascular: RRR. No murmurs. Extremities: No edema. No clubbing. No cyanosis. Neurologic: The patient is alert and oriented x3. No focal neurological deficits. LABORATORY: WBC 10.5, hemoglobin 10.8, hematocrit 35.7, platelet 143,000. Sodium 137, potassium 4.3, chloride 98, bicarbonate 27. BUN 38, creatinine 0.8, glucose 180. Hemoglobin A1c 7.8. ASSESSMENT AND PLAN: 1. Right middle lung pneumonia. Apparently, this is getting better and, also, as per the patient she has been having chronic hypoxia. She uses oxygen at home. We will continue checking the CBC and BMP. We will continue the treatment with Levaquin. 2. Chronic obstructive pulmonary disease, not in exacerbation at this moment. She is getting better. Continue with oxygen supplementation as well. 3. Type 2 diabetes. Her hemoglobin A1c is 7.6. I increased the dose of Lantus from 25-30, and I will monitor the blood sugar for the next 24 hours again. 4. Chronic heart failure, not in exacerbation. Continue with the same management. 5. Hypertension, stable. cc: Wallace Khalil MD
[2016-07-25] MEDS: DESYREL PO PRN (21:32)
[2016-07-25] MEDS: XANAX PO PRN (21:32)
[2016-07-25] MEDS: CYMBALTA PO SCH (21:32)
[2016-07-26] MEDS: DUONEB (A & A) INH SCH ×6 (03:57→23:19)
[2016-07-26] MEDS: LEVAQUIN 750 MG/D5W 750 MG/150 ML IVPB IV SCH (05:18)
[2016-07-26] MEDS: HUMULIN R SUBQ SCH ×4 (06:28→22:10)
[2016-07-26 07:36] LABS: BASO% 0.3 % (0.0-0.8); EOS# 0.16 X1000 (0.0-0.7); EOS% 1.7 % (0.0-10.0); HEMATOCRIT 36.6 % (37.0-47.0); IMM GRAN# 0.09 X1000 (0.0-0.04); LYMPH# 1.97 X1000 (1.2-3.4); LYMPH% 21.3 % (20.5-51.1); MCH 24.7 PG (27-31); MCHC 30.1 g/dL (33-37); MCV 82.1 FL (81-99); MONO# 0.78 X1000 (0.11-0.59); MONO% 8.5 % (1.7-9.3); MPV 10.9 FL (7.4-10.4); NEUT% 67.2 % (42.2-75.2); PLT 202 X1000 (130-400); RBC 4.46 XMIL (4.2-5.4)
[2016-07-26 07:37] LABS: MANUAL DIFF NEEDED? NO
[2016-07-26 08:07] LABS: AGAP 11; BUN 35 mg/dL (8-22); CALCIUM 9.7 mg/dL (8.8-10.2); CHLORIDE 103 mmol/L (98-107); COSMO 291; POTASSIUM 4.1 mmol/L (3.5-5.1); SODIUM 139 mmol/L (136-145); TCO2 25 mmol/L (25-35)
[2016-07-26] MEDS: FERROUS SULFATE PO SCH ×2 (10:15→22:10)
[2016-07-26] MEDS: MUCINEX PO SCH ×2 (10:15→22:10)
[2016-07-26] MEDS: LYRICA PO SCH ×2 (10:15→22:10)
[2016-07-26] MEDS: COREG CR PO SCH (10:15)
[2016-07-26] MEDS: LANTUS SUBQ SCH (10:16)
[2016-07-26] MEDS: LASIX PO SCH (10:16)
[2016-07-26] MEDS: MICARDIS PO SCH (10:16)
[2016-07-26] MEDS: PREDNISONE PO SCH (10:18)
[2016-07-26] MEDS: NS 1,000 ML IV SCH (12:21)
--- NOTE | 2016-07-26 15:35 | PROGRESS NOTE ---
DATE: 07/26/2016 SUBJECTIVE: This patient states that she is feeling fine. She is breathing better. She is still complaining of cough and generalized weakness. This patient already stopped smoking last year, but she smoked for more than 50 years. Tomorrow hopefully I am going to be able to discharge this patient. OBJECTIVE: Vital Signs: Temperature 98.1 degrees, pulse 86, respiratory rate 17, blood pressure 127/57, O2 saturation 98 on 2 L of nasal cannula. HEENT: Head normocephalic. No trauma. PERRLA. Neck: Supple. No JVD. No masses. Central trachea. Chest: Decreased breath sounds globally with rhonchi at the level of the right middle and lower lung. No wheezing. Abdomen: Soft, nontender, nondistended. No hepatosplenomegaly. Cardiovascular: Regular rhythm and rate. No murmurs. Extremities: No edema. No clubbing. No cyanosis. Neurological: The patient is alert and oriented x3. No focal neurological deficits. Just generalized weakness. LABORATORY: WBC 9.2, hemoglobin 11, hematocrit 36.6, platelets 202,000. Sodium 139, potassium 4.1, chloride 103, bicarbonate 25, BUN 35, creatinine 0.7, glucose 206, calcium 9.7. ASSESSMENT AND PLAN: 1. Right middle lung pneumonia, this is getting better. Apparently this patient has been having chronic hypoxia. She uses oxygen at home. We will continue checking her complete blood count and basic metabolic panel. We will continue with the treatment with Levaquin, and tomorrow hopefully this patient is going to be able to be discharged, probably she will need also home health and physical therapy at home. 2. Chronic obstructive pulmonary disease, not in exacerbation at this moment. She is getting better. Continue with oxygen supplementation as well and breathing treatment. 3. Type 2 diabetes. Her hemoglobin A1c 7.6. Yesterday I increased the dose of Lantus from 25 to 30 and I will continue to monitor the blood sugar for the next 24 hours. 4. Congestive heart failure. Not in exacerbation. Continue with the same management. 5. Hypertension, stable. cc: Wallace Khalil MD
[2016-07-26] MEDS: DESYREL PO PRN (22:10)
[2016-07-26] MEDS: CYMBALTA PO SCH (22:10)
[2016-07-26] MEDS: XANAX PO PRN (22:10)
[2016-07-27] MEDS: DUONEB (A & A) INH SCH ×4 (03:54→15:46)
[2016-07-27] MEDS: LEVAQUIN 750 MG/D5W 750 MG/150 ML IVPB IV SCH (05:16)
[2016-07-27] MEDS: HUMULIN R SUBQ SCH ×2 (06:36→11:34)
[2016-07-27] MEDS ORDERED: INSULIN PEN NEEDLES ONE (07:24)
[2016-07-27 07:50] LABS: AGAP 8; BUN 30 mg/dL (8-22); CALCIUM 9.7 mg/dL (8.8-10.2); CHLORIDE 104 mmol/L (98-107); COSMO 290; SODIUM 141 mmol/L (136-145); TCO2 29 mmol/L (25-35)
[2016-07-27 08:02] LABS: BASO% 0.4 % (0.0-0.8); EOS# 0.21 X1000 (0.0-0.7); EOS% 2.5 % (0.0-10.0); HEMATOCRIT 33.1 % (37.0-47.0); HEMOGLOBIN 9.8 g/dL (12.0-16.0); IMM GRAN# 0.09 X1000 (0.0-0.04); IMM GRAN% 1.1 % (0.0-0.5); LYMPH% 25.7 % (20.5-51.1); MANUAL DIFF NEEDED? YES; MCH 24.4 PG (27-31); MCHC 29.6 g/dL (33-37); MCV 82.5 FL (81-99); MONO# 0.76 X1000 (0.11-0.59); MONO% 8.9 % (1.7-9.3); MPV 10.7 FL (7.4-10.4); NEUT% 61.4 % (42.2-75.2); PLT 190 X1000 (130-400); RBC 4.01 XMIL (4.2-5.4)
[2016-07-27] MEDS: MICARDIS PO SCH (08:06)
[2016-07-27] MEDS: FERROUS SULFATE PO SCH (08:07)
[2016-07-27] MEDS: LASIX PO SCH (08:07)
[2016-07-27] MEDS: PREDNISONE PO SCH (08:07)
[2016-07-27] MEDS: LYRICA PO SCH (08:07)
[2016-07-27] MEDS: COREG CR PO SCH (08:07)
[2016-07-27] MEDS: MUCINEX PO SCH (08:08)
[2016-07-27] MEDS: LANTUS SUBQ SCH (08:08)
[2016-07-27 08:26] LABS: LYMPHS 22 % (21-51); MONO 4 % (1-9)
[2016-07-27 08:27] LABS: POLYCHROM OCCASIONAL
[2016-07-27] MEDS: NS 1,000 ML IV SCH (11:33)
[2016-07-27 16:23] VITALS: BP 123/64
--- NOTE | 2016-07-28 10:33 | DISCHARGE SUMMARY ---
ADMISSION DATE: 07/22/2016 DISCHARGE DATE: 07/27/2016 CONSULTATIONS: None. PERTINENT PROCEDURES: Chest x-ray, stable. Follow up chest x-ray showed interval improvement of increased right perihilar lung markings seen on previous studies. DISCHARGE DIAGNOSES: 1. Right middle lung pneumonia. The patient will continue on oral antibiotics, as well as her home oxygen. 2. Chronic obstructive pulmonary disease without exacerbation. Continue with home regimen. 3. Diabetes mellitus type 2. Hemoglobin A1c 7.6. Lantus was increased from 25-30. 4. Congestive heart failure, no known exacerbation. Continue with home management. 5. Hypertension, stable. HOSPITAL COURSE: Ms. Ramirez is a 76-year-old female with a history of COPD on home O2, diabetes mellitus type 2, hypertension, who presented to the ED with 2 days history of worsening shortness of breath and productive cough. She was evaluated in the ED and found to have a right middle lobe infiltrate. She was admitted to the medical telemetry for suspected pneumonia. Started on IV fluids, IV antibiotics, as well as bronchodilators and aggressive pulmonary toilet. The patient's follow-up chest x-ray showed interval improvement in the increased right perihilar lung markings as seen on previous study. Her white count has remained stable. She also remained afebrile since admission. Clinically the patient has improved. Patient did advise that she quit smoking last year, but she did smoke for more than 50 years. The patient is being discharged home today with [facility]. That will be at her daughter's residence. To continue on her home O2. VITAL SIGNS: Temperature is 98.3 degrees, heart rate 98, respirations 18, blood pressure 155/85, O2 is 98% on 3 L nasal cannula. DISCHARGE DIET: Diabetic. DISCHARGE MEDICATIONS: As per Dr. Sarkar. Please see MAR. FOLLOW-UP: The patient is being discharged home with her daughter with [facility]. The patient can return to the ED for any worsening of symptoms. Although she has advised that she quit smoking last year, she has been educated again against daily cessation against smoking cigarettes. DISCHARGE TIME: 30 minutes. Dictated by VIPUL Cole for Wallace Khalil MD cc: Wallace Khalil MD
== END 2016-07-27 16:58 | disposition home health service (06) ==
LOC: ED 23:28 → EDIPHOLD 07-22 03:37 → SUATTDRO 07-22 03:37 → 3N 07-22 04:58
PROVIDERS: ATTEND Internal Medicine

== ENCOUNTER 2018-06-29 13:50 | Inpatient (IN) ==
--- NOTE | 2018-06-29 14:43 | EKG Report ---
Test Performed on : 06/29/2018 2:12:06 PM Test Reason : ams Blood Pressure : / mmHG Vent. Rate : 070 BPM Atrial Rate : 070 BPM P-R Int : 164 ms QRS Dur : 120 ms QT Int : 392 ms P-R-T Axes : 000 -43 084 degrees QTc Int : 423 ms Normal sinus rhythm. Left axis deviation Anteroseptal infarct (cited on or before 08-JAN-2018) Abnormal ECG When compared with ECG of 08-JAN-2018 10:31, Non-specific change in ST segment in Inferior leads T wave inversion no longer evident in Lateral leads Unconfirmed Result
[2018-06-29 14:55] LABS: BASO# 0.04 X1000 (0.0-0.2); BASO% 0.4 % (0.0-0.8); EOS# 0.51 X1000 (0.0-0.7); EOS% 5.1 % (0.0-10.0); HEMATOCRIT 33.6 % (37.0-47.0); HEMOGLOBIN 10.2 g/dL (12.0-16.0); IMM GRAN# 0.05 X1000 (0.0-0.04); IMM GRAN% 0.5 % (0.0-0.5); LYMPH# 1.61 X1000 (1.2-3.4); MCH 26.6 PG (27-31); MCHC 30.4 g/dL (33-37); MCV 87.7 FL (81-99); MONO# 0.78 X1000 (0.11-0.59); MONO% 7.8 % (1.7-9.3); MPV 10.4 FL (7.4-10.4); NEUT# 7.05 X1000 (1.4-6.5); NEUT% 70.2 % (42.2-75.2); PLT 286 X1000 (130-400); RBC 3.83 XMIL (4.2-5.4); WBC 10.04 X1000 (4.8-10.8)
[2018-06-29 15:04] LABS: INR 0.93; PROTIME 13.3 Seconds (11.0-16.0)
[2018-06-29 15:36] LABS: AGAP 11; ALB/GLOB RATIO 1.3; ALBUMIN 3.3 g/dL (3.5-5.0); ALKALINE PHOSPHATASE 114 U/L (32-104); BUN 23 mg/dL (8-22); CHLORIDE 95 mmol/L (98-107); CK PROFILE 63 U/L (24-173); COSMO 274; CREATININE 0.8 mg/dL (0.5-0.9); ESTIMATED GFR > 60; GLUCOSE 67 mg/dL (70-104); GOT 14 U/L (10-30); GPT 13 U/L (10-36); POTASSIUM 4.7 mmol/L (3.5-5.1); SODIUM 136 mmol/L (136-145); TCO2 30 mmol/L (25-35); TOTAL BILIRUBIN 0.18 mg/dL (0.20-1.00); TOTAL PROTEIN 5.9 g/dL (6.3-8.3)
--- NOTE | 2018-06-29 15:40 | Diag Imaging Result Doc PS360 ---
EXAM: CT HEAD/C-SPINE W/O CONTRAST INDICATION: Fall/altered mental status TECHNIQUE: This exam was performed using automated exposure control, adjustment of mA or kV according to patient size, and/or use of iterative reconstruction technique. COMPARISON: CT head dated 03/03/2017 FINDINGS: Head: There is mild patchy low attenuation in the periventricular and subcortical white matter suggesting mild microangiopathy, stable. There is no definite acute infarct given the limited sensitivity of CT versus MRI. There is no discrete intracranial mass, mass effect, or intracranial hemorrhage. The surrounding soft tissues are essentially unremarkable. The calvaria is intact. C-spine: There is multilevel degenerative disc disease with loss of disc space height and marginal osteophyte formation. This is causing varying degrees of central canal and neuroforaminal stenosis at several levels, probably most significant at C4-5 and C5-6 where there is at least moderate central stenosis. Otherwise, there is no discrete fracture, acute subluxation, or intrinsic osseous lesion. The surrounding soft tissues are essentially unremarkable. IMPRESSION: 1.Stable chronic appearing white matter changes but no definite acute intracranial pathology. 2.Multilevel degenerative arthropathy but no evidence of fracture or other definite acute C-spine injury. Electronically signed by Abdirahman Hernandez 06/29/2018 3:38 PM
[2018-06-29 15:42] LABS: ALLEN TEST YES; BLOOD TYPE ARTERIAL; HCO3-(ACT) 31.9 mmoll (20.0-26.0); METHB 1.4 % (0.0-1.5); O2HB 95.4 % (95.0-99.0); PO2(98.6) 103 mmHg (60-100); SAMPLE BLOOD; SAO2 97.5 % (95.0-100.0); THB 10.3 g/dL (11.5-17.4)
[2018-06-29 15:43] LABS: MODALITY ROOM AIR; PCO2(98.6) 57 mmHg (35-45)
--- NOTE | 2018-06-29 15:49 | PROVIDER DOCUMENTATION ---
This chart was entered by Mario Andino Scribe, acting as scribe for Beatriz Wade CRNP. HPI-Neurological Disorder - General Chief Complaint: Altered Mental Status Stated Complaint: Fall Time Seen by Provider: 06/29/18 14:25 Source: patient, family Allergies/Adverse Reactions: Patient Allergies Allergy/AdvReac Type Severity Reaction Status Date / Time amoxicillin trihydrate * Allergy VOMITING Verified 06/17/17 17:49 [From Augmentin] codeine Allergy hallucinati Verified 06/17/17 17:49 ons potassium clavulanate * Allergy VOMITING Verified 06/17/17 17:49 [From Augmentin] Home Medications: Home Medication List Medication Instructions Recorded Confirmed Last Taken Type Acetaminophen [Tylenol] 650 mg PO Q6H PRN PRN #0 tablet 05/20/16 01/08/18 01/07/18 22:00 Rx Albuterol 2.5MG/Ipratrop 0.5MG 3 ml INH Q2H PRN PRN #0 neb 05/20/16 01/08/18 10/30/17 Rx [Duoneb (A & A)] Furosemide 20 mg PO DAILY 07/15/16 01/08/18 01/07/18 10:00 History Potassium Chloride E.r. [Klor-Con] 10 meq PO DAILY 07/15/16 01/08/18 01/07/18 10:00 History Pregabalin [Lyrica] 150 mg PO TID 07/15/16 01/08/18 01/07/18 22:00 History Carvedilol C.r. [Coreg Cr] 80 mg PO DAILY 03/03/17 01/08/18 01/07/18 10:00 History Tiotropium [place] Inhaler 1 puff INH RTDAILY 03/03/17 01/08/18 01/07/18 10:00 History [Spiriva] Tramadol [Ultram] 25 mg PO DAILY PRN PRN 06/17/17 01/08/18 01/07/18 22:00 History Trazodone [Desyrel] 50 mg PO QHS 06/17/17 01/08/18 01/07/18 22:00 History Amlodipine Besylate [Norvasc] 5 mg PO DAILY 10/30/17 01/08/18 01/07/18 10:00 History Ergocalciferol (Vitamin D2) 1 gm MC ORDERED 10/30/17 01/08/18 01/02/18 10:00 History [Ergocalciferol] Guaifenesin [Mucinex] 600 mg PO DAILY 10/30/17 01/08/18 01/07/18 10:00 History Insulin Glargine [Basaglar] 20 unit SUBQ HS 10/30/17 01/08/18 01/07/18 22:00 History Insulin Glargine [Lantus] 25 unit SUBQ DAILY 10/30/17 01/08/18 01/07/18 10:00 History Lorazepam [Ativan] 0.5 mg PO TID 10/30/17 01/08/18 01/07/18 20:30 History Prednisone 4 mg PO HS 10/30/17 01/08/18 01/07/18 22:00 History Sacubitril/Valsartan [Entresto 97 1 each PO BID 10/30/17 01/08/18 01/07/18 22:00 History mg-103 mg Tablet] Duloxetine HCl 30 mg PO DAILY 01/08/18 01/08/18 01/07/18 10:00 History - History of Present Illness-Neuro Nature of Presenting Problem: 78 yof hx of dm, htn and copd presents via ems with cc of multiple falls the past 3 days. Reports just goes to stand and legs are giving out and that she is weakness. Reports lives with family. Patient reports she is on Hospice. Pt reports that she is on home O2. States she feels like maybe she had a stroke because she just fades away. Pt reports she has fell over the past few days and has reported hitting head. Patient's two daughters are primary caregivers. Daughters reports over the past week, the patient has gotten weaker and has fallen approximately 5 times this week. One of those falls, daughter reports that patient hit her head but did not lose consciousness. Patient able to ambulate with walker, however over the past 2 days, patient has been able to ambulate or stand up without falling. EMS has had to be called 2x today because patient has fallen and family has been unable to pick her up. Patient is on Hospice for Failure to Thrive/COPD/DM. Patient also has reported that her bilateral hips and knees have been hurting since one of the falls. Daughters reports increasing dyspnea on exertion. On 3L [place] home O2. Also reports multiple episodes of diarrhea x1 day. Reports patient has been battling upper respiratory infections for which she has been on antibiotics for, however off antibiotics for 1 week per daughters. Daughters are concerned because patient has declined in health over the past week. Severity: reports: moderate Onset/Duration: reports: 4 days ago Timing: reports: still present Character of Altered Mental Status: reports: confused, other (falling and increase weakness) Character of Deficits: reports: new weakness, decreased ability to walk Cognitive Baseline: alert but confused Review of Systems - Adult - REVIEW OF SYSTEMS - ADULT Constitutional: denies: fever, fatique, night sweats Eyes: denies: decreased vision, blurred vision, double vision, eye pain Ears, Nose, Mouth & Throat: denies: epistaxis, nose pain, loose teeth, mouth/dental pain, mouth swelling, throat pain, throat swelling Cardiovascular: denies: chest pain, irregular heart rate, orthopnea, palpitations Respiratory: denies: cough, dyspnea on exertion, excessive sputum production, shortness of breath, wheezing Gastrointestinal: denies: abdominal pain, hematemesis, diarrhea, frequent heartburn, nausea Genitourinary: denies: flank pain, frequent UTI's, hesitency, incontinence Musculoskeletal: denies: joint pain, joint swelling, muscle aches Integumentary: reports: no symptoms reported Neurological: reports: see HPI, other (weakness, falls, ams). denies: dizziness/vertigo, headache/migraines, numbness, paresthesia, seizure, slurred speech Psychiatric: reports: no symptoms reported Endocrine: reports: no symptoms reported Hematologic/Lymphatic: reports: no symptoms reported Allergic/Immunologic: reports: no symptoms reported All Other Systems: Reviewed and Negative Past History - Adult - PAST MEDICAL HISTORY-ADULT Review of Records: reports: Nursing Assessment Review, Medications Reviewed Major Childhood Illnesses: reports: denies history Cardiovascular: reports: CHF, HTN Respiratory: reports: COPD Gastrointestinal: reports: denies history Obstetrical/Gynecological: reports: denies history Genitourinary: reports: denies history Musculoskeletal: reports: denies history Neurological: reports: denies history Endocrine/Immune: reports: Diabetes Other Conditions: reports: denies history - PRIOR SURGERIES/PROCEDURES Surgical/Procedure History: reports: cholecystectomy, hysterectomy - IMMUNIZATION STATUS Childhood Immunizations: See Nurse Assessment Flu Vaccine: See Nurse Assessment - FAMILY HISTORY Family History: reviewed, not pertinent - SOCIAL HISTORY Smoking: other (quit 7 months ago per pt) Substance Use: none/never Physical Exam- Neurological - Physical Exam-Neuro Initial Vital Signs Reviewed: Yes General Appearance: alert, other (falling asleep during examinations) Eye Exam: bilateral eye: PERRL HENMT: moist mucous membranes Head Injury: no evidence of injury Neck: non-tender, full range of motion, supple, normal inspection Respiratory: chest non-tender, lungs clear, normal breath sounds, no pleuratic chest pain, no respiratory distress Cardiovascular: normal peripheral pulses, regular rate, rhythm, no edema, no gallop, no JVD, no murmur Abdominal Exam: non tender, soft, no organomegaly, no pulsatile mass Peripheral Pulses: radial (R): 2+, radial (L): 2+, dorsalis-pedis (R): 2+, dorsalis-pedis (L): 2+ Extremity: normal range of motion, pelvis stable. 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 negative: abnormal speech, facial asymmetry, facial droop, facial paresthesias, facial weakness Motor/Sensory: no sensory deficit, no pronator drift, weak motor strength LUE, weak motor strength LLE Neurologic: grossly normal, motor weakness. negative: abnormal [place]pent[place] distiller II-XII, aphasia, EOM palsy, facial droop, focal weakness Integumentary: normal color, normal turgor, pallor Psych/Mental Status: oriented x 3 - Glascow Coma Scale Best Eye Response: (4) open spontaneously Best Verbal Response: (5) oriented Best Motor Response: (6) obeys commands Total Glascow Score: 15 Progress - PLAN OF CARE/RESULTS Progress/Plan/Lab Results: Vital Signs - 8 hr 06/29/18 14:10 06/29/18 15:27 06/29/18 16:01 Temperature 97.8 F Pulse Rate 67 68 70 Respiratory Rate 19 19 17 Blood Pressure 106/59 99/55 113/59 O2 Sat by Pulse Oximetry 97 97 98 06/29/18 17:00 06/29/18 17:01 06/29/18 17:02 Temperature Pulse Rate 72 71 70 Respiratory Rate 18 15 18 Blood Pressure 100/68 O2 Sat by Pulse Oximetry 100 99 99 06/29/18 17:29 06/29/18 17:30 06/29/18 17:31 Temperature Pulse Rate 73 74 73 Respiratory Rate 15 21 19 Blood Pressure 94/60 O2 Sat by Pulse Oximetry 89 L 97 06/29/18 17:40 06/29/18 17:50 06/29/18 18:00 Temperature Pulse Rate 73 78 74 Respiratory Rate 15 15 13 Blood Pressure O2 Sat by Pulse Oximetry 100 91 L 06/29/18 18:01 Temperature Pulse Rate 76 Respiratory Rate 16 Blood Pressure 107/64 O2 Sat by Pulse Oximetry 94 L 06/29/18 17:20 - Final Stool Laboratory Results - last 24 hr 06/29/18 06/29/18 06/29/18 14:23 14:24 14:24 WBC 10.04 RBC 3.83 L Hgb 10.2 L Hct 33.6 L MCV 87.7 MCH 26.6 L MCHC 30.4 L RDW Std Deviation 13.0 Plt Count 286 MPV 10.4 Immature Gran % (Auto) 0.5 Neut % (Auto) 70.2 Lymph % (Auto) 16.0 L [place] % (Auto) 7.8 Eos % (Auto) 5.1 Baso % (Auto) 0.4 Immature Gran # (Auto) 0.05 H Neut # (Auto) 7.05 H Lymph # (Auto) 1.61 Bath # (Auto) 0.78 H Eos # (Auto) 0.51 Baso # (Auto) 0.04 PT INR PTT (Actin FS) Specimen Type Sample Site pH pCO2 pO2 HCO3 Base Excess Oxyhemoglobin ABG O2 Sat (Calculated) ABG O2 Saturation ABG Carboxyhemoglobin ABG Methemoglobin Mega Test A-a O2 Difference Total Hemoglobin Lactate Blood Gas Modality FiO2 % Sodium 136 Potassium 4.7 Chloride 95 L Carbon Dioxide 30 Anion Gap 11 BUN 23 H Creatinine 0.8 Estimated GFR/1.73 m2 > 60 BUN/Creatinine Ratio 29 Glucose 67 L POC Glucose 76 D Calculated Osmolality 274 Calcium 10.0 Total Bilirubin 0.18 L AST 14 ALT 13 Alkaline Phosphatase 114 H Creatine Kinase 63 Troponin T [id number]-[id number] Pept Total Protein 5.9 L Albumin 3.3 L Globulin 2.6 Albumin/Globulin Ratio 1.3 Urine Source Urine Color Urine Turbidity Urine pH Ur Specific [place] Urine Protein Ur Glucose (Stick) Ur Ketones (Stick) Urine Blood Urine Nitrite Urine Bilirubin Urobilinogen Dipstick Urine Leukocytes Urine WBC (Auto) Urine RBC (Auto) U Epithel Cells (Auto) Urine Bacteria (Auto) 06/29/18 06/29/18 06/29/18 14:24 14:24 14:24 WBC RBC Hgb Hct MCV MCH MCHC RDW Std Deviation Plt Count MPV Immature Gran % (Auto) Neut % (Auto) Lymph % (Auto) [place] % (Auto) Eos % (Auto) Baso % (Auto) Immature Gran # (Auto) Neut # (Auto) Lymph # (Auto) Bath # (Auto) Eos # (Auto) Baso # (Auto) PT 13.3 INR 0.93 PTT (Actin FS) 33.0 Specimen Type Sample Site pH pCO2 pO2 HCO3 Base Excess Oxyhemoglobin ABG O2 Sat (Calculated) ABG O2 Saturation ABG Carboxyhemoglobin ABG Methemoglobin Mega Test A-a O2 Difference Total Hemoglobin Lactate Blood Gas Modality FiO2 % Sodium Potassium Chloride Carbon Dioxide Anion Gap BUN Creatinine Estimated GFR/1.73 m2 BUN/Creatinine Ratio Glucose POC Glucose Calculated Osmolality Calcium Total Bilirubin AST ALT Alkaline Phosphatase Creatine Kinase Troponin T < 0.010 Abg-[id number] Pept 270 Total Protein Albumin Globulin Albumin/Globulin Ratio Urine Source Urine Color Urine Turbidity Urine pH Ur Specific [place] Urine Protein Ur Glucose (Stick) Ur Ketones (Stick) Urine Blood Urine Nitrite Urine Bilirubin Urobilinogen Dipstick Urine Leukocytes Urine WBC (Auto) Urine RBC (Auto) U Epithel Cells (Auto) Urine Bacteria (Auto) 06/29/18 06/29/18 06/29/18 15:33 18:13 20:08 WBC RBC Hgb Hct MCV MCH MCHC RDW Std Deviation Plt Count MPV Immature Gran % (Auto) Neut % (Auto) Lymph % (Auto) [place] % (Auto) Eos % (Auto) Baso % (Auto) Immature Gran # (Auto) Neut # (Auto) Lymph # (Auto) Bath # (Auto) Eos # (Auto) Baso # (Auto) PT INR PTT (Actin FS) Specimen Type ARTERIAL Sample Site L RADIAL pH 7.40 pCO2 57 H* pO2 103 H HCO3 31.9 H Base Excess 9.0 H Oxyhemoglobin 95.4 ABG O2 Sat (Calculated) 14.0 L ABG O2 Saturation 97.5 ABG Carboxyhemoglobin 0.80 ABG Methemoglobin 1.4 Mega Test YES A-a O2 Difference -25.0 Total Hemoglobin 10.3 L Lactate 0.90 Blood Gas Modality ROOM AIR FiO2 % 21.0 Sodium Potassium Chloride Carbon Dioxide Anion Gap BUN Creatinine Estimated GFR/1.73 m2 BUN/Creatinine Ratio Glucose POC Glucose 69 L Calculated Osmolality Calcium Total Bilirubin AST ALT Alkaline Phosphatase Creatine Kinase Troponin T Tuj-O-Sfrmsnxjrdk Pept Total Protein Albumin Globulin Albumin/Globulin Ratio Urine Source CATH Urine Color YELLOW Urine Turbidity CLEAR Urine pH 5.5 Ur Specific [place] 1.006 Urine Protein NEGATIVE Ur Glucose (Stick) NEGATIVE Ur Ketones (Stick) NEGATIVE Urine Blood NEGATIVE Urine Nitrite NEGATIVE Urine Bilirubin NEGATIVE Urobilinogen Dipstick NORMAL Urine Leukocytes NEGATIVE Urine WBC (Auto) <10 Urine RBC (Auto) <10 U Epithel Cells (Auto) <10 Urine Bacteria (Auto) NEGATIVE Orders Category Date Time Status Blood Glucose Finger Stick [FSBS/Accucheck Result] NOW Care 06/29/18 17:00 Active Cardiac Monitoring DIRECTED Care 06/29/18 14:39 Active Oxygen Therapy- ED Nursing DIRECTED Care 06/29/18 14:39 Active Saline Loc NOW Care 06/29/18 14:39 Active Diabetic Diet Diet 06/29/18 17:38 Active CHEST-2 VIEWS [RAD] Stat Exams 06/29/18 17:02 Completed CHEST-PORTABLE [RAD] Stat Exams 06/29/18 14:[address] HEAD/C-SPINE W/O CONTRAST [CT] Stat Exams 06/29/18 15:21 Completed KNEE 3 VIEWS LEFT [RAD] Stat Exams 06/29/18 16:56 Completed KNEE 3 VIEWS RIGHT [RAD] Stat Exams 06/29/18 16:56 Completed XRAY PELVIS W/HIP 2-3VW LT [RAD] Stat Exams 06/29/18 16:56 Completed XRAY PELVIS W/HIP 2-3VW RT [RAD] Stat Exams 06/29/18 16:56 Completed ABG [RESP] Routine Lab 06/29/18 15:33 Completed CBC WITH ELECTRONIC DIFF [HEME] Stat Lab 06/29/18 14:24 Completed CK PROFILE [SP CHEM] Stat Lab 06/29/18 14:24 Completed COMPREHENSIVE METABOLIC PANEL [CHEM] Stat Lab 06/29/18 14:24 Completed OCCULT BLOOD DIAGNOSTIC [STOOL] Stat Lab 06/29/18 17:20 Completed PRO B-NATRIURETIC PEPTIDE Stat Lab 06/29/18 14:24 Completed PROTIME WITH INR [COAG] Stat Lab 06/29/18 14:24 Completed PTT [COAG] Stat Lab 06/29/18 14:24 Completed TROPONIN T Stat Lab 06/29/18 14:24 Completed URINALYSIS W/POSS RFLX CULT [URINALYSIS] Stat Lab 06/29/18 20:08 Completed Dextrose 50% Syringe [D50w Syringe] Med 06/29/18 20:53 Discontinued 25 ml IV NOW ONE Altered Mental Status Stat Oth 06/29/18 14:39 Ordered EKG [EKG] NOW Ther 06/29/18 19:55 Ordered EKG [EKG] Stat Ther 06/29/18 14:09 Draft Lab results, imaging results, and plan of care discussed with patient and daughters who verbalize understanding. Result Diagrams: 06/29/18 14:24 06/29/18 14:24 - EKG 1 Time of EKG reading by physician:: 14:12 EKG Read and Signed by:: Sidney Andino EKG Interpretation (*Must complete 3 of following elements*): Abnormal (anteroseptal infarct age undetermined) Rate: 70 Rhythm: nsr [place]: left QRS: normal - XRAY 1 XRAY: Bilateral XRAY Study: Chest Impression: See EMR Report ([facility] [address], [address], [place] [address] Department of Imaging Patient: MEETA KEYS Date: 06/29/18#: [id number] : 1940DM [id number] Age/Sex: 78/FRoom/Bed: Loc: ED Ordering Physician: Sidney Andino MD Family Physician: Pankaj Wood MD Reason for Procedure: ams ___ Signed EXAM: CHEST-PORTABLE HISTORY: ams TECHNIQUE: Single view of the chest was performed portably. COMPARISON: 01/08/2018 FINDINGS: There is cardiomegaly and evidence of previous granulomatous infection. There is suboptimal evaluation of the retrocardiac region due to portable technique and body habitus. The pulmonary vasculature is not congested. There is atherosclerotic calcification within the aorta. There may be an infiltrate/effusion left lower lobe. IMPRESSION: Cardiomegaly. Cannot e xclude left basilar infiltrate or effusion. Consider follow-up with PA and lateral. Electronically signed by Deborah Machuca 06/29/2018 4:34 PM 06/29/18 1634 Interpreting Physician: Deborah Machuca MD Dictated Date/Time: 06/29/18 1631 cc: Sidney Andino MD; Pankaj Wood MD) 2 XRAY: Bilateral XRAY Study: Chest Impression: See EMR Report ([facility] [address] , [address], [place] [address] Department of Imaging Patient: MEETA KEYS Date: 06/29/18#: [id number] : 1940DM Status: REG ERAcct#: [id number] Age/Sex: 78/FRoom/Bed: Loc: ED Ordering Physician: Beatriz Wade Family Physician: Pankaj Wood MD Reason for Procedure: Possible PNA; follow-up from 1 view chest Signed EXAM: CHEST-2 VIEWS HISTORY: Possible PNA; follow- up from 1 view chest TECHNIQUE: PA and Lateral chest x-ray COMPARISON: 06/29/2018 portable exam FINDINGS: The cardiomediastinal silhouette is within normal limits. The pulmonary vasculature is not congested. No infiltrate, effusion, or pneumothorax is appreciated. There is evidence of previous granulomatous infection. Stable scarring right lung base. IMPRESSION: No acute cardiopulmonary abnormality is identified. Electronically signed by Deborah Machuca 06/29/2018 5:50 PM 06/29/18 1750 Interpreting Physician: Deborah Machuca MD Dictated Date/Time: 06/29/181748 cc: Beatriz Wade; Pankaj Wood MD) 3 XRAY: Bilateral XRAY Study: Knee Impression: See EMR Report ([facility] [address], [address], [place] [address] Department of Imaging Patient: MEETA KEYS Date: 06/29/18MR#: [id number] : 1940DM Status: REG ERAcct#: [id number] Age/Sex: 78/FRoom/Bed: Loc: ED Ordering Physician: Beatriz Wade Family Physician: Pankaj Wood MD Reason for Procedure: fall ___ Signed EXAM: KNEE 3 VIEWS RIGHT HISTORY: fall TECHNIQUE: Three views COMPARISON: None. FINDINGS: IThere is a small suprapatellar effusion. There is chondrocalcinosis. No acute fracture or dislocation is identified. IMPRESSION: The suprapatellar effusion. No acute bony abnormality. Electronically signed by Deborah Machuca 06/29/2018 5:48 PM 06/29/181747 Interpreting Physician: Deborah Machuca MD Dictated Date/Time: 06/29/181746 cc: Beatriz Wade; Pankaj Wood MD [facility] [address], [address], [place] [address] Department of Imaging Patient: MEETA KEYS Date: 06/29/18MR#: [id number] : 1940DM Status: REG ERAcct#: [id number] Age/Sex: 78/FRoom/Bed: Loc: ED Ordering Physician: Beatriz Wade Family Physician: Pankaj Wood MD Reason for Procedure: fall Signed EXAM: KNEE 3 VIEWS LEFT HISTORY: fall TECHNIQUE: Three views COMPARISON: None. FINDINGS: There is a suprapatellar effusion. There is chondrocalcinosis. No acute fracture or dislocation is identified. IMPRESSION: Suprapatellar effusion. No acute bony abnormality. Electronically signed by Deborah Machuca 06/29/2018 5:44 PM 06/29/181743 Interpreting Physician: Deborah Machuca MD Dictated Date/Time: 06/29/181742 cc: Beatriz Wdae; Pankaj Wood MD) 4 XRAY: Bilateral XRAY Study: Pelvis, Hip Impression: See EMR Report ([facility] [address], [address], [place] [address] Department of Imaging Patient: MEETA KEYS Date: 06/29/18#: [id number] : 1940DM Status: REG [facility]#: [id number] Age/Sex: 78/FRoom/Bed: Loc: ED Ordering Physician: Beatriz Wade Family Physician: Pankaj Wood MD Reason for Procedure: fall Signed EXAM: XRAY PELVIS W/HIP 2-3VW RT INDICATION: fall TECHNIQUE: 3 views COMPARISON: None. FINDINGS: There is mild degenerative arthropathy at the acetabular roof. There is no discrete fracture, dislocation, or significant intrinsic osseous lesion, otherwise. The surrounding soft tissues are essentially unremarkable. IMPRESSION: Mild right hip degenerative arthropathy. No evidence of acute osseous abnormality. Electronically signed by Abdirahman Hernandez 06/29/2018 6:02 PM 06/29/181801 Interpreting Physician: Abdirahman Hernandez MD Dictated Date/Time: 06/29/181800 cc: Beatriz Wade; Pankaj Wood MD [facility] [address], [address], [place] [address] Department of Imaging Patient: MEETA KEYS Date: 06/29/18#: [id number] : 1940DM Status: [facility] ERAcct#: [id number] Age/Sex: 78/FRoom/Bed: Loc: ED Ordering Physician: Beatriz Wade Family Physician: Pankaj Wood MD Reason for Procedure: Fall Signed EXAM: XRAY PELVIS W/HIP 2-3VW LT INDICATION: Fall TECHNIQUE: 2 views COMPARISON: None. FINDINGS: There is mild degenerative arthropathy at the acetabular roof. There is no discrete fracture, dislocation, or significant intrinsic osseous lesion, otherwise. The surrounding soft tissues are essentially unremarkable. IMPRESSION: No evidence of acute osseous abnormality. Electronically signed by Abdirahman Hernandez 06/29/2018 6:05 PM 06/29/181804 Interpreting Physician: Abdirahman Hernandez MD Dictated Date/Time: 06/29/181803 cc: Beatriz Wade; Pankaj Wood MD) - CT/MRI 1 CT Study: Cervical Spine, Head Impression: See EMR Report ([facility] [place] [address], [address], [place] [address] Department of Imaging Patient: MEETA KEYS Date: 06/29/18#: [id number] : 1940DM [facility] [id number] Age/Sex: 78/FRoom/Bed: Loc: ED Ordering Physician: Beatriz Wade Family Physician: Pankaj Wood MD Reason for Procedure: Fall/altered mental status Signed EXAM: CT HEAD/C-SPINE W/O CONTRAST INDICATION: Fall/altered mental status TECHNIQUE: This exam was performed using automated exposure control, adjustment of mA or kV according to patient size, and/or use of iterative reconstruction technique. COMPARISON: CT head dated 03/03/2017 FINDINGS: Head: There is mild patchy low attenuation in the periventricular and subcortical white matter suggesting mild microangiopathy, stable. There is no definite acute infarct given the limited sensitivity of CT versus MRI. There is no discrete intracranial mass, mass effect, or intracranial hemorrhage. The surrounding soft tissues are essentially unremarkable. The calvaria is intact. C-spine: There is multilevel degenerative disc disease with loss of disc space height and marginal osteophyte formation. This is causing varying degrees of central canal and neuroforaminal stenosis at several levels, probably most significant at C4-5 and C5-6 where there is at least moderate central stenosis. Otherwise, there is no discrete fracture, acute subluxation, or intrinsic osseous lesion. The surrounding soft tissues are essentially unremarkable. IMPRESSION: 1.Stable chronic appearing white matter changes but no definite acute intracranial pathology. 2.Multilevel degenerative arthropathy but no evidence of fracture or other definite acute C-spine injury. Electronically signed by Abdirahman Hernandez 06/29/2018 3:38 PM 06/29/18 1538 Interpreting Physician: Abdirahman Hernandez MD Dictated Date/Time: 06/29/18 1532 cc: Beatriz Wade; Pankaj Wood MD) - CONSULTS/PCP/HOSPITALIST Notification #1 *Consult/PCP/Hospitalist*: Bradyshantellejocelyn Time Discussed: 21:08 Reason/Comments: Weakness Consult Disposition: Admit Departure - Departure Date of Disposition Decision: 06/29/18 Time of Disposition Decision: 21:08 DIAGNOSIS: Weakness Anemia Qualifiers: Anemia type: unspecified type Qualified Code(s): D64.9 - Anemia, unspecified Fall at home Qualifiers: Encounter type: initial encounter Qualified Code(s): W19.XXXA - Unspecified fall, initial encounter; Y92.009 - Unspecified place in unspecified non- institutional (private) residence as the place of occurrence of the external cause Disposition: ADMITTED INPATIENT 09 Certified Medical Emergency: Emergent Condition: Stable Referrals and Follow-Ups: Pankaj Wood MD [Primary Care Provider] - - Critical Care Note This patient required my direct & personal management of CC.: No Attestation - Physician/ JAIMIE Attestation Patient care was provided by Advanced Practice Provider:: Yes Advanced Practice Provider:: Beatriz Wade Advanced Practice Provider documentation review:: The Mid-level provider documentation, treatment plan and medical decision making was reviewed by the physician who agrees with all treatment and medical decision making by the MLP. The physician spent face to face time with patient:: No Advanced Practice Provider documentation review:: Supervising physician onsite and consulted in the evaluation and care of this patient. The physician did not have a face to face encounter with the patient. - NIH Stroke Scale NIH Type: Initial Evaluation Level of Consciousness: 1-Drowsy, but arousable with minimal stimulation LOC Questions (ask month and age): 0-Answers Both Correctly LOC Commands (ask to open & close eyes;make a fist, let go): 0-Obeys Both Correctly Best Gaze (horizontal eye movement): 0-Normal Visual (use finger movement, counting or visual threat): 0-No Visual Loss Facial Palsy (show teeth or raise eyebrows & close eyes tght: 0-Symmetrical Movement Motor Function-left arm: 2-Some Effort Against [place] Motor Function-right arm: 0-Normal Motor Function-left le-Some Effort Against [place] Motor Function-right le-Normal Limb Ataxia(vngtzt-vgab-ofiwmk, or heel to cavazos): 0-No Ataxia Sensory(pin prick to face,arms,trunk,legs-compare side/side): 0-No Ataxia Best Language(name item/read sentence.Ex-Down to [place]): 0-No Aphasia Dysarthria(Pt read words or say words Ex.Mama,Tip-Top,Thanks: 0-Normal Articulation Extinction and Inattention: 0-Normal NIH Total Score: 4 Modified [place] Score Criteria: 2-slight disability This chart was documented by the indicated scribe, (Mario Andino Scribe) and accurately reflects the services I performed and decisions made by , Beatriz Wade CRNP, as attested by the provider's signature.
--- NOTE | 2018-06-29 16:37 | Diag Imaging Result Doc PS360 ---
EXAM: CHEST-PORTABLE HISTORY: ams TECHNIQUE: Single view of the chest was performed portably. COMPARISON: 01/08/2018 FINDINGS: There is cardiomegaly and evidence of previous granulomatous infection. There is suboptimal evaluation of the retrocardiac region due to portable technique and body habitus. The pulmonary vasculature is not congested. There is atherosclerotic calcification within the aorta. There may be an infiltrate/effusion left lower lobe. IMPRESSION: Cardiomegaly. Cannot exclude left basilar infiltrate or effusion. Consider follow-up with PA and lateral. Electronically signed by Deborah Machuca 06/29/2018 4:34 PM
--- NOTE | 2018-06-29 17:47 | Diag Imaging Result Doc PS360 ---
EXAM: KNEE 3 VIEWS LEFT HISTORY: fall TECHNIQUE: Three views COMPARISON: None. FINDINGS: There is a suprapatellar effusion. There is chondrocalcinosis. No acute fracture or dislocation is identified. IMPRESSION: Suprapatellar effusion. No acute bony abnormality. Electronically signed by Deborah Machuca 06/29/2018 5:44 PM
--- NOTE | 2018-06-29 17:51 | Diag Imaging Result Doc PS360 ---
EXAM: KNEE 3 VIEWS RIGHT HISTORY: fall TECHNIQUE: Three views COMPARISON: None. FINDINGS: IThere is a small suprapatellar effusion. There is chondrocalcinosis. No acute fracture or dislocation is identified. IMPRESSION: The suprapatellar effusion. No acute bony abnormality. Electronically signed by Deborah Machuca 06/29/2018 5:48 PM
--- NOTE | 2018-06-29 17:53 | Diag Imaging Result Doc PS360 ---
EXAM: CHEST-2 VIEWS HISTORY: Possible PNA; follow-up from 1 view chest TECHNIQUE: PA and Lateral chest x-ray COMPARISON: 06/29/2018 portable exam FINDINGS: The cardiomediastinal silhouette is within normal limits. The pulmonary vasculature is not congested. No infiltrate, effusion, or pneumothorax is appreciated. There is evidence of previous granulomatous infection. Stable scarring right lung base. IMPRESSION: No acute cardiopulmonary abnormality is identified. Electronically signed by Deborah Machuca 06/29/2018 5:50 PM
--- NOTE | 2018-06-29 18:04 | Diag Imaging Result Doc PS360 ---
EXAM: XRAY PELVIS W/HIP 2-3VW RT INDICATION: fall TECHNIQUE: 3 views COMPARISON: None. FINDINGS: There is mild degenerative arthropathy at the acetabular roof. There is no discrete fracture, dislocation, or significant intrinsic osseous lesion, otherwise. The surrounding soft tissues are essentially unremarkable. IMPRESSION: Mild right hip degenerative arthropathy. No evidence of acute osseous abnormality. Electronically signed by Abdirahman Hernandez 06/29/2018 6:02 PM
--- NOTE | 2018-06-29 18:07 | Diag Imaging Result Doc PS360 ---
EXAM: XRAY PELVIS W/HIP 2-3VW LT INDICATION: Fall TECHNIQUE: 2 views COMPARISON: None. FINDINGS: There is mild degenerative arthropathy at the acetabular roof. There is no discrete fracture, dislocation, or significant intrinsic osseous lesion, otherwise. The surrounding soft tissues are essentially unremarkable. IMPRESSION: No evidence of acute osseous abnormality. Electronically signed by Abdirahman Hernandez 06/29/2018 6:05 PM
[2018-06-29 20:18] LABS: URINE SOURCE CATH
[2018-06-29 20:23] LABS: BILIRUBIN URINE NEGATIVE (NEGATIVE); BLOOD URINE NEGATIVE (NEGATIVE); COLOR YELLOW; GLUCOSE URINE NEGATIVE (NEGATIVE); KETONE URINE NEGATIVE (NEGATIVE); LEUKOCYTES URINE NEGATIVE (NEGATIVE); NITRITE URINE NEGATIVE (NEGATIVE); PH URINE 5.5; PROTEIN URINE NEGATIVE (NEGATIVE); SP GRAVITY URINE 1.006; TURBIDITY URINE CLEAR (CLEAR); UROBILINOGEN URINE NORMAL (NORMAL)
[2018-06-29 20:26] LABS: UR EPITHELIAL CELLS <10 /HPF (<10); URINE BACTERIA NEGATIVE /HPF; URINE RBC <10 /HPF (<10); URINE WBC <10 /HPF (<10)
[2018-06-29] MEDS ORDERED: D50W SYRINGE IV ONE (20:53)
--- NOTE | 2018-06-29 22:22 | HISTORY AND PHYSICAL ---
ADDENDUM TO HISTORY AND PHYSICAL: REASON FOR ADMISSION: Recurrent falls, weakness, and diarrhea over the last 2 days. PRIMARY CARE PHYSICIAN: Dr. Pankaj Wood. HISTORY OF PRESENT ILLNESS: The patient's family brought patient in, because today she slumped twice and has been very difficult to get on her feet. She is currently a patient of hospice services. About 5 days ago, they increased her dose of her Ativan from 0.5 mg t.i.d. to 1 mg t.i.d., which used to be her previous dose. This had to be increased, because she was having frequent hand tremors. Patient has history of essential tremors, by the way. The patient by her own admission states she has been very sleepy and drowsy for the last 2 days. When I saw her, she was very drowsy and lethargic. Unfortunately, we do not have her home medications list, but from her old medication list, I know she is also taking trazodone in addition to Ativan. She is on Cymbalta. She is also on tramadol, primidone, and Lyrica, all of which can cause sedation. I would recommend that we withhold all potentially sedating medications and restart them at half the usual dose. The only thing on her labs that was of note was that she had a BUN of 23 and a creatinine of 0.8, which is not entirely unusual for this patient. I do think in light of her having a number of loose stools a day, I think she can be cautiously hydrated overnight. She was also noted to be hypoglycemic. She takes long-acting insulin. This also needs to be held and started at a lower dose tomorrow. The patient will need to be observed for 24 to 48 hours. When she is fully awake and alert, she can be discharged back to the care of hospice at home. cc: MD Pankaj Price MD
[2018-06-30] MEDS ORDERED: ZOFRAN IV PRN (00:43)
[2018-06-30] MEDS ORDERED: TYLENOL PO PRN (00:43)
[2018-06-30] MEDS ORDERED: NS 1,000 ML IV SCH (01:00)
--- NOTE | 2018-06-30 07:12 | EKG Report ---
Test Performed on : 06/29/2018 7:58:07 PM Test Reason : Chest Pain that radiates into the left arm. Blood Pressure : / mmHG Vent. Rate : 079 BPM Atrial Rate : 079 BPM P-R Int : 174 ms QRS Dur : 108 ms QT Int : 374 ms P-R-T Axes : 064 -23 089 degrees QTc Int : 428 ms Normal sinus rhythm. Anteroseptal infarct (cited on or before 08-JAN-2018) ST & T wave abnormality, consider lateral ischemia Abnormal ECG When compared with ECG of 29-JUN-2018 14:12, (Unconfirmed) No significant change was found Unconfirmed Result
--- NOTE | 2018-06-30 07:41 | Diag Imaging Result Doc PS360 ---
EXAM: LUMBAR SPINE 2-VIEWS 06/29/2018 HISTORY: Weakness,Fall TECHNIQUE: Lumbosacral spine AP and lateral COMMENT: The pedicles are intact. There is generalized osteopenia. There is no evidence of acute fracture or subluxation. There is calcification of the abdominal aorta without evidence of aneurysm. Slight narrowing of the L3-4 disc space is present. The L1-2 disc space is also narrowed with vacuum disc phenomenon. IMPRESSION: No evidence of acute bony disease. Degenerative disc disease. Electronically signed by Rickie Martin 06/30/2018 7:38 AM
--- NOTE | 2018-06-30 07:42 | Diag Imaging Result Doc PS360 ---
EXAM: ABDOMEN FLAT/UPRIGHT 06/29/2018 HISTORY: Abdominal Pain,Diarrhea TECHNIQUE: AP upright sitting at 2251 COMMENT: There is a nonspecific bowel gas pattern. There is gas in the stomach small bowel and colon. There are numerous granulomata in the spleen. There is some calcification in the abdominal aorta and iliac arteries. IMPRESSION: Nonspecific abdomen. Electronically signed by Rickie Martin 06/30/2018 7:40 AM
[2018-06-30] MEDS: DUONEB (A & A) INH SCH ×3 (08:04→21:05)
[2018-06-30 08:16] LABS: BASO# 0.02 X1000 (0.0-0.2); BASO% 0.2 % (0.0-0.8); EOS# 0.39 X1000 (0.0-0.7); EOS% 4.8 % (0.0-10.0); HEMATOCRIT 32.3 % (37.0-47.0); HEMOGLOBIN 9.8 g/dL (12.0-16.0); IMM GRAN# 0.03 X1000 (0.0-0.04); IMM GRAN% 0.4 % (0.0-0.5); LYMPH# 1.37 X1000 (1.2-3.4); LYMPH% 16.7 % (20.5-51.1); MCH 26.6 PG (27-31); MCHC 30.3 g/dL (33-37); MCV 87.8 FL (81-99); MONO% 8.6 % (1.7-9.3); NEUT# 5.67 X1000 (1.4-6.5); NEUT% 69.3 % (42.2-75.2); PLT 266 X1000 (130-400); RBC 3.68 XMIL (4.2-5.4); RDW 13.1 % (11.5-14.5); WBC 8.18 X1000 (4.8-10.8)
[2018-06-30] MEDS ORDERED: ULTRAM PO PRN (09:00)
[2018-06-30 09:28] LABS: AGAP 8; BUN 13 mg/dL (8-22); CALCIUM 10.3 mg/dL (8.8-10.2); CHLORIDE 97 mmol/L (98-107); COSMO 275; CREATININE 0.7 mg/dL (0.5-0.9); ESTIMATED GFR > 60; GLUCOSE 116 mg/dL (70-104); MAGNESIUM 1.9 mg/dL (1.5-2.7); POTASSIUM 4.2 mmol/L (3.5-5.1); SODIUM 137 mmol/L (136-145); TCO2 32 mmol/L (25-35)
[2018-06-30] MEDS: MUCINEX PO SCH (09:41)
[2018-06-30] MEDS: LYRICA PO SCH ×3 (09:41→22:32)
[2018-06-30] MEDS: MYSOLINE PO SCH ×3 (09:41→22:32)
[2018-06-30 10:16] LABS: ALLEN TEST YES; BE 9.8 mmoll (-3.0-3.0); BLOOD TYPE ARTERIAL; HCO3-(ACT) 32.6 mmoll (20.0-26.0); METHB 0.9 % (0.0-1.5); O2(CT) 13.6 mL/dL (15.0-23.0); O2HB 95.8 % (95.0-99.0); PO2(98.6) 92 mmHg (60-100); SAMPLE BLOOD; SAO2 97.7 % (95.0-100.0); pH(98.6) 7.42 (7.35-7.45)
[2018-06-30 10:19] LABS: MODALITY CANNULA
[2018-06-30 10:21] LABS: PCO2(98.6) 55 mmHg (35-45)
--- NOTE | 2018-06-30 11:34 | HISTORY AND PHYSICAL ---
PRIMARY CARE PROVIDER: Dr. Pankaj oWod. CHIEF COMPLAINT: Altered mental status. HISTORY OF PRESENT ILLNESS: Ms. Ramirez is a 78-year-old, female who has a past medical history most notable for congestive heart failure, diabetes mellitus, fibromyalgia, depression, currently on hospice for COPD for which she dependent upon 3 L nasal cannula continuously, and failure to thrive. Note, just recently, the patient has, in the past couple of weeks, been treated for an upper respiratory infection and was placed on antibiotic of doxycycline that she has completed this at this time. She also did have medication changes of an increase in her Ativan from 0.5 to 1 mg 3 times a day. This was increased due to increased frequent hand tremors. The patient's two daughters did bring her in today for further evaluation due to their report at home that she has had 2 falls. The patient has been very drowsy, sleeping most of the day for the past 2 days. They have reported her having some recent increased confusion as well as weakness. They state that twice, the patient has fallen at home, though these do seem to be more like she is weak and her legs are giving way and then she is slumping down from what her daughter describes. She states that upon one occasion, she did fall and may have hit her head as well, though did not have any loss of consciousness. The patient, even herself, reports that she has been very sleepy and drowsy. They also report that after one her falls, she had been complaining of bilateral hip and bilateral knee pain. Given her symptoms, she has been brought to the ER for further treatment and evaluation. Upon initial arrival to the ER, vital signs were temperature 97.8 degrees, heart rate 67, respiratory rate is 19, blood pressure is 106/59, and oxygen saturation is 96% nasal cannula at 3 liters. Throughout her initial ER stay her blood pressure was slightly on the low side initially with systolic readings in the 90s, and even dipping down into the 80s and 70s. Though since that time, her blood pressure has slowly improved. They did perform multiple radiology exams which did not show any acute findings. They did perform a CT of the head and C-spine without contrast which did not show any acute findings either. The patient had also reported that she has had a 1-day history of several episodes of diarrhea. Laboratory results did reveal that she was mildly hypoglycemic with a glucose of 67. She also did have some mild hypercapnia on her arterial blood gases. The patient, on looking back, normally ranges in the low 50s to low 60s on the CO2 levels, and this is likely her baseline. Urine did not show any signs of infection. At this time, the patient will be admitted for further treatment and evaluation of her encephalopathy, weakness, and diarrhea. REVIEW OF SYSTEMS: A 14 point review of systems was conducted with the patient and all were negative except for pertinent positives mentioned above in the HPI. The patient denies any headache, chest pain, shortness of breath, or cough. She is reporting some abdominal pain prior to her episodes of diarrhea. She denies any nausea or vomiting. Denies any known hematochezia or melena. The patient denies having any dysuria. Denies having any increased pain, numbness, tingling, or swelling in the extremities. PAST MEDICAL HISTORY: 1. COPD, on 3 L nasal cannula continuously at home. 2. Congestive heart failure. 3. Diabetes mellitus type 2. 4. Hypertension. 5. Chronic pain syndrome. 6. Depression. 7. Fibromyalgia. 8. Essential tremor. 9. Currently on hospice for failure to thrive and COPD. PAST SURGICAL HISTORY: 1. Hysterectomy. 2. Cholecystectomy. 3. Bladder tack. SOCIAL HISTORY: The patient does live with her daughter at this time and both her daughters who help take care of her are at bedside. She does require the assistance of a walker. She is a . She is a former smoker. She did smoke 1 pack of cigarettes per day since age 16, though quit smoking more than three years ago. FAMILY HISTORY: Positive for her mother having congestive heart failure, diabetes, and cervical cancer. Her father had a history of coronary artery disease and pancreatic cancer. Her brother had alcoholic cirrhosis, who is , and another brother with coronary artery disease, status post heart transplant. ALLERGIES: Patient has allergies to Augmentin which causes vomiting, and codeine which causes hallucinations. HOME MEDICATIONS: 1. DuoNeb treatment one treatment inhaled three times a day. 2. ProAir HFA inhaler, one inhalation, as directed p.r.n. 3. Coreg controlled release 80 mg p.o. daily. 4. Duloxetine 30 mg p.o. daily. 5. Furosemide 20 mg p.o. daily. 6. Mucinex 600 mg p.o. every morning. 7. Basaglar 25 units subq at bedtime. 8. Ativan 1 mg p.o. t.i.d. 9. Klor-Con 10 mEq p.o. daily. 10. Lyrica 100 mg p.o. t.i.d. 11. Primidone 50 mg p.o. three times daily 12. Entresto 97/103 mg tablet one p.o. twice daily. 13. [id number] mg p.o. twice daily. 14. Desyrel 50 mg p.o. at bedtime. DIAGNOSTIC DATA: White blood cell count 10,040, hemoglobin 10.2, hematocrit 32.6 platelet count 286,000. PT 13.3, INR 0.93, PTT 33. Arterial blood gas obtained on it says room air but I would assume it would have to be nasal cannula at 3 L (the patient does wear continuous oxygen), pH was 7.4, pCO2 57, p02 103, HC03 31.9, base excess is 9, 02 saturation is 97.5. Sodium 136, potassium 4.7, chloride 95, serum bicarb is 30, BUN 23, creatinine 0.8, glucose 357 (repeat check later of o 204), calcium of 10. Liver function tests within normal limits. Alkaline phosphatase is slightly elevated at 114. CK 63, troponin less than 0.01. ProBNP is 270. Urinalysis was obtained via catheter was negative for protein, glucose, ketones, blood, nitrites, leukocytes, WBCs, and bacteria. EKG showed a normal sinus rhythm with a left axis deviation, a heart rate of 70, with a QTc of 423. A CT of head and cervical spine showed stable chronic-appearing white matter changes but no definite acute intracranial pathology. There was multilevel degenerative arthropathy but no evidence of fracture or other definite acute cervical spine injury. Left and right hip, lumbar spine, and bilateral knee x-rays did not show any acute findings. The only thing mentioned was that there were suprapatellar effusions noted bilaterally. Chest 2 view showed no acute cardiopulmonary abnormality per radiology. Abdominal x-ray showed nonspecific abdomen. PHYSICAL EXAMINATION: VITAL SIGNS: Temperature 97.8 degrees, heart rate 82, respirations of 16, blood pressure 109/62, oxygen saturation is 98% on nasal cannula at 3 L. GENERAL: Ms. Ramirez is a very pleasant, elderly, female. She was resting on the ER stretcher. She was in no acute distress. She was slightly drowsy upon examination, though was arousable. Once awoken, she was alert and oriented to person and place, though not time. The patient was able to answer some simple questions and follow commands. HEENT: Head is atraumatic, normocephalic. Pupils are equal, round, reactive to light, were 3 mm bilaterally and brisk. Oral mucosa is moist. Oropharynx is clear. NECK: Supple. Trachea midline. No JVD noted. No carotid bruits noted upon auscultation bilaterally. CARDIOVASCULAR: Patient has S1 and S2 present. No murmurs, gallops, rubs appreciated. Regular rate and rhythm. PULMONARY: Patient has symmetrical chest expansion bilaterally. Lung sounds were clear to auscultation bilaterally. ABDOMEN: Soft. Does not appear to be distended, although the patient does have a slightly protuberant abdomen. She reports some tenderness in the periumbilical area. Bowel sounds are present in all 4 quadrants, were normoactive. EXTREMITIES: No cyanosis or edema noted. Motor and sensory intact in all extremities. Radial and pedal pulses were 2 plus bilaterally. INTEGUMENTARY: The patient's skin is pink, warm, and dry. NEUROLOGIC: The patient is alert and oriented to person and place, though not time. She was slightly drowsy upon our examination, though is easily arousable with verbal stimulation. Once awoken, she is able to answer some questions. She is able to move all extremities. She does have generalized weakness noted though. There does not appear to be any focal neurological deficits. The patient does have a tremor noted as well and does have a history of essential tremor. ASSESSMENT AND PLAN: 1. Encephalopathy. This could be multifactorial. The patient was noted to be slightly hypoglycemic. She does take several neurotoxic medications as well as she was slightly hypercapnic though her CO2 level does appear to be somewhat close to her baseline, though in combination with other things, this could be contributing to this. We will continue to monitor this closely. We have held some of the patient's medications, especially for tonight. When we start them back in the morning, we will reduce the doses in half. We will continue to follow this closely. We will also repeat EKG in the morning. We will do every 4 hour fingerstick blood sugars to monitor for any hypoglycemia. 2. Weakness. This could be multifactorial, as well as maybe related to [*]to some of the symptoms as mentioned above. We have made medication changes as well. We will have physical therapy take a look at her as well and we will continue to follow. 3. Diarrhea. The patient reportedly had several episodes of diarrhea x1 day. She had been on recent antibiotic of doxycycline for upper respiratory infection. Given this, we will place orders for stool studies. We will continue to follow. We will cautiously provide some very gentle fluid hydration. The patient does have a history of congestive heart failure, though she does appear to maybe slightly dehydrated. We will do 1 L of normal saline at 75 mL per hour x1 bag and we will closely monitor her fluid volume status with strict intake and output. We have also held some of her heart failure medications, given that she was borderline and hypotensive at the time of the emergency room visit, although this has improved at this time. We will hold these for tonight and we will look at restarting these in the morning. 4. Chronic obstructive pulmonary disease, on home oxygen nasal cannula at 3 L. We will continue breathing treatments and her supplemental oxygen. We will continue to follow. We will repeat ABG in the morning. 5. Diabetes mellitus type 2. The patient is actually hypoglycemic at this time. We will continue to monitor her fingerstick blood sugars, though at this time we will hold her diabetic medications. We will re-evaluate this in the morning and continue to follow her fingerstick blood sugars. 6. Hypertension. As previously mentioned, her blood pressure has been slightly on the low side. Given this, we have held her blood pressure medications for tonight. We will re-evaluate this in the morning and implement her antihypertensives if her blood pressure has improved. 7. Failure to thrive. The patient reportedly is on hospice prior to her admission for failure to thrive and chronic obstructive pulmonary disease. We will continue to follow. 8. The patient has been placed on the medical floor with telemetry. She will have vital signs every 4 hours. We will do strict intake and output, incentive spirometry. She will be on aspiration and fall precautions. We will encourage frequent turn, cough, and deep breathing. We will do neuro checks for 24 hours. We are awaiting stool studies. She will be on a diabetic diet. Further orders and recommendations pending hospital course, diagnostic studies, and physician evaluations. Dictated by VIPUL Berrios for Silke Navarro MD cc: Silke Navarro MD
[2018-06-30] MEDS: COREG CR PO SCH (13:28)
[2018-06-30] MEDS: BASAGLAR SUBQ SCH (13:28)
[2018-06-30] MEDS: CYMBALTA PO SCH (13:28)
--- NOTE | 2018-06-30 17:18 | PROGRESS NOTE ---
DATE: 06/30/2018 INTERVAL HISTORY: The patient remains globally weak but not altered. Occasionally tearful but no new complaints. No acute events overnight. Discussed the case with family. They state that she has had slowly progressive weakness for quite some time, but acutely worse in the last couple of days. They have had increasing difficulty taking care of her at home and desires some kind of placement. She was on hospice prior to discharge and they are open to hospice again and definitely want no heroic measures taken. REVIEW OF SYSTEMS: Twelve point review of systems negative except as per interval history. LABS: WBC 8.1, hemoglobin 9.8, hematocrit 32.3, platelets 266,000. ABG with pH 7.42, pCO2 55, PO2 92, O2 saturation 97. Sodium 137, potassium 4.2, chloride 97, bicarb 32, BUN 13, creatinine 0.7, glucose down to 69 overnight, running 121 to 204 today. Magnesium 1.9. IMAGING: All imaging unremarkable including abdominal x-ray, lumbar spine x-ray, chest x-ray, bilateral knee x-rays, bilateral hip and pelvis x-rays, head and cervical spine CT. VITAL SIGNS: T-max 98.3 degrees, pulse 84, respirations 20, blood pressure 136/102, O2 saturation 100% on 3 L by nasal cannula. PHYSICAL EXAMINATION: General: No acute distress, although occasionally tearful. Vital signs: As above. HEENT: Normocephalic, atraumatic. Slightly dry mucous membranes. No cervical adenopathy. Cardiovascular: Regular rate and rhythm. No murmurs, rubs, or gallops noted. Pulmonary: Clear to auscultation bilaterally. Abdomen: Soft, nontender, nondistended. Bowel sounds positive. Extremities: Peripheral pulses intact. No clubbing, cyanosis, or edema. Neurologic: Cranial nerves grossly intact. Significant global weakness, but no focal deficits identified. Psychiatric: Depressed mood. Fairly normal affect. Awake, alert, oriented x3 currently. Skin: No new rashes or lesions identified. ASSESSMENT AND PLAN: 1. Global weakness. Hypoglycemia noted on admission. May have been contributing, but patient appears to have been declining for quite some time with hospice prior to admission. Hypoglycemia, now resolved. We will get physical therapy to work with her and see how she does, but also discussed with family that she may not do well in the near future and they expressed understanding of this. 2. Hypoglycemia. The patient is diabetic with likely just on too much basal insulin at home. We will decrease this and monitor. No need for tight glycemic control and palliatively patient in overall poor health. 3. Diabetes mellitus. Hypoglycemic on admission. Hypoglycemia now resolved with only mild to moderate elevations. We will resume basal insulin at much lower dose. Continue sliding scale and monitor. 4. Possible polypharmacy. Patient on numerous sedating medications at home. Ativan was also recently increased. This may have been contributing to her issues with weakness at home. Reduced dose of Ativan. Continuing Lyrica for now. Continue monitoring. 5. Chronic obstructive pulmonary disease. On 3 L of oxygen at home. No signs of exacerbation at this time. Continue to monitor. 6. Chronic hypercapnic respiratory failure secondary to chronic obstructive pulmonary disease. This appears to be stable at this time. 7. Diastolic congestive heart failure. No signs of CHF exacerbation. Continue home Entresto. 8. Disposition. Likely to rehab versus inpatient hospice of some kind.
[2018-06-30] MEDS: ENTRESTO 97 MG-103 MG TABLET PO SCH (22:31)
[2018-06-30] MEDS: ATIVAN PO PRN (22:31)
[2018-07-01] MEDS ORDERED: INSULIN PEN NEEDLES ONE (06:01)
[2018-07-01] MEDS: CYMBALTA PO SCH (10:18)
[2018-07-01] MEDS: MYSOLINE PO SCH ×3 (10:18→21:44)
[2018-07-01] MEDS: LYRICA PO SCH ×3 (10:20→21:44)
[2018-07-01] MEDS: MUCINEX PO SCH (10:20)
[2018-07-01] MEDS: BASAGLAR SUBQ SCH (10:21)
[2018-07-01] MEDS: COREG CR PO SCH (10:21)
[2018-07-01] MEDS: ENTRESTO 97 MG-103 MG TABLET PO SCH ×2 (10:21→21:44)
[2018-07-01] MEDS: DUONEB (A & A) INH SCH ×3 (10:34→21:31)
--- NOTE | 2018-07-01 16:28 | PROGRESS NOTE ---
DATE: 07/01/2018 INTERVAL HISTORY: Global weakness, stable. Patient in better spirits today. Complaining only of dry itchy eyes. No pain or discharge noted. No other new complaints. No acute events overnight. Discussed again with family and patient. They now desire to go to rehabilitation to see if she can regain enough strength to go back home. If she does not, then they will plan on long-term placement after rehabilitation. REVIEW OF SYSTEMS: A 12 point review of systems negative except as per Interval History LABORATORIES: Glucose 128-201. VITALS: T-max 98.3 degrees, pulse 73, respirations 18, blood pressure 129/54, O2 saturation 100% on 3 L by nasal cannula. PHYSICAL EXAMINATION: General: No acute distress. Vitals: As above. HEENT: Normocephalic, atraumatic. Moist mucous membranes. Neck: No cervical adenopathy. Cardiovascular: Regular rate and rhythm. No murmurs, rubs, or gallops noted. Pulmonary: Clear to auscultation bilaterally. Abdomen: Soft, nontender, nondistended. Bowel sounds positive. Extremities: Peripheral pulses intact. No clubbing, cyanosis, or edema. Neurologic: Cranial nerves grossly intact. Globally weak, but no focal deficits identified. Psychiatric: Depressed mood. Fairly normal affect. Awake, alert, and oriented x3 currently. Skin: No new rashes or lesions identified. ASSESSMENT AND PLAN: 1. Global weakness. Suspect this was due to hypoglycemia noted on admission. No further hypoglycemia since significantly decreasing patient's basal insulin. Despite some improvement, patient remains quite weak globally. Planning on rehabilitation once placement obtained. 2. Hyperglycemia. The patient is diabetic and appears to likely be on too much basal insulin. This has been significantly adjusted. Appears improved. 3. Diabetes mellitus. Hyperglycemic on admission. Reasonable control currently. Continue to monitor. 4. Polypharmacy. Patient on numerous sedating medications at home. Ativan was also recently increased, which may have been contributing to her somnolence and increased weakness on admission. Reduced dose of Ativan. Continuing other medications for now. Continue monitoring. Initial sedation appears to be improved. 5. Chronic obstructive pulmonary disease with chronic hypoxic respiratory failure. The patient on 3 L oxygen at home. No signs of exacerbation at this time. Continue to monitor. 6. Diastolic congestive heart failure. No signs of CHF exacerbation. Continue home Entresto. 7. Dry eyes. No erythema, injection. No pain with movement. No drainage noted. We will give some lubricating eye drops and monitor. DISPOSITION: To rehabilitation once placement obtained.
[2018-07-02] MEDS: SYSTANE EYE DROPS OPH PRN ×3 (00:51→22:56)
[2018-07-02] MEDS: ATIVAN PO PRN ×3 (00:51→22:58)
[2018-07-02] MEDS: DUONEB (A & A) INH SCH ×4 (07:50→20:18)
[2018-07-02] MEDS: MYSOLINE PO SCH ×3 (09:39→22:57)
[2018-07-02] MEDS: CYMBALTA PO SCH (09:39)
[2018-07-02] MEDS: COREG CR PO SCH (09:39)
[2018-07-02] MEDS: ENTRESTO 97 MG-103 MG TABLET PO SCH ×2 (09:39→22:58)
[2018-07-02] MEDS: LYRICA PO SCH ×3 (09:39→22:58)
[2018-07-02] MEDS: MUCINEX PO SCH (09:39)
[2018-07-02] MEDS: BASAGLAR SUBQ SCH (09:41)
--- NOTE | 2018-07-02 14:32 | PROGRESS NOTE ---
DATE: 07/02/2018 INTERVAL HISTORY: Global weakness slightly improved. Slight confusion overnight but otherwise no acute events noted complaints . REVIEW OF SYSTEMS: Twelve point review of systems negative except as per interval history. VITALS: T-max 98.5 degrees, pulse 77, respirations 16, blood pressure 134/66, O2 saturation 99% on 2 L by nasal cannula. PHYSICAL EXAM: General: No acute distress. Vitals as above. HEENT: Normocephalic, atraumatic. Moist mucous membranes. No cervical adenopathy. Cardiovascular: Regular rate and rhythm. No murmurs, rubs or gallops noted. Pulmonary: Clear to auscultation bilaterally. No wheezing noted. Abdomen: Soft, nontender, nondistended. Bowel sounds positive. Extremities: Peripheral pulses intact. No clubbing, cyanosis or edema. Neurologic: Cranial nerves grossly intact globally weak but no focal deficit seen. Psychiatric: Fairly normal mood and affect. Awake, alert and oriented x3 currently. Skin: No new rashes or lesions identified. ASSESSMENT AND PLAN: 1. Global weakness. The patient with likely failure to thrive underlying but likely exacerbated by hypoglycemia noted on admission. The patient's basal insulin was significantly decreased and she has had no further hypoglycemia since then. Continue physical therapy and plan on discharge to rehab once placement obtained. 2. Diabetes. Hypoglycemic on admission. Reasonable control currently on much reduced dose of basal insulin and sliding scale. Continue to monitor. 3. Polypharmacy. Patient on numerous sedating medications at home. Ativan was recently increased which may have been contributing to her somnolence and increased weakness on admission. Reduced dose of Ativan patient appears to be tolerating so far. 4. Chronic obstructive pulmonary disease with chronic hypoxic respiratory failure, patient on 3 L oxygen at home. No signs exacerbation at this time. Continue to monitor. 5. Diastolic congestive heart failure. No signs of congestive heart failure exacerbation. Continue home Entresto. 6. Dry eyes. No erythema, injection, pain with movement or drainage. Improved with lubricating eye drops. 7. Disposition to rehab once placement is obtained. Hopefully Wednesday.
[2018-07-02] MEDS: IMODIUM PO PRN (17:53)
[2018-07-03] MEDS ORDERED: NS NEB INH SCH (05:00)
[2018-07-03] MEDS ORDERED: XOPENEX NEB INH ONE (05:00)
[2018-07-03] MEDS: ATIVAN PO PRN ×3 (05:01→20:21)
--- NOTE | 2018-07-03 06:55 | Diag Imaging Result Doc PS360 ---
EXAM: CHEST-PORTABLE 07/03/2018 HISTORY: sob TECHNIQUE: Erect AP portable at 0644 COMMENT: There is mild cardiomegaly. There is questionable bibasilar atelectasis. Otherwise considering differences in technique there has been no significant change since 06/29/2018. IMPRESSION: Questionable bibasilar atelectasis. Borderline cardiomegaly. Electronically signed by Rickie Martin 07/03/2018 6:52 AM
[2018-07-03] MEDS: DUONEB (A & A) INH SCH ×3 (08:27→21:45)
--- NOTE | 2018-07-03 09:15 | PROGRESS NOTE ---
DATE: 06/29/2018 SUBJECTIVE: Patient overall notes that she feels okay. Denies any new complaints. OBJECTIVE: Vitals: Temperature 98, pulse 77 to 104, respiratory rate 18, blood pressure 116/95. General: Patient is in no distress. She does awaken and answer questions. HEENT: Normocephalic. Neck: Supple. CARDIOVASCULAR: Regular rate. Chest: Clear, nonlabored. Abdomen: Soft, nondistended. Extremities: No edema. ASSESSMENT: 1. Global generalized weakness. 2. Diabetes with hypoglycemia. Currently, blood sugars are minimally elevated. 3. Chronic obstructive pulmonary disease with chronic respiratory failure. 4. Chronic hypoxic respiratory failure. Patient is on 3 L at home. 5. Diastolic congestive heart failure. PLAN: Hopefully patient can transition to rehab when bed is available. We will continue supportive care. Continue to follow. cc: Nader Martins MD
[2018-07-03] MEDS: MYSOLINE PO SCH ×3 (10:10→20:21)
[2018-07-03] MEDS: BASAGLAR SUBQ SCH (10:10)
[2018-07-03] MEDS: ENTRESTO 97 MG-103 MG TABLET PO SCH ×2 (10:11→20:21)
[2018-07-03] MEDS: CYMBALTA PO SCH (10:11)
[2018-07-03] MEDS: MUCINEX PO SCH (10:11)
[2018-07-03] MEDS: COREG CR PO SCH (10:11)
[2018-07-03] MEDS: LYRICA PO SCH ×3 (10:11→20:21)
[2018-07-03] MEDS: IMODIUM PO PRN (10:15)
[2018-07-03] MEDS ORDERED: CARDIZEM IV ONE (13:21)
[2018-07-04] MEDS ORDERED: CALMOSEPTINE OINTMENT TOP PRN (03:35)
[2018-07-04] MEDS: DUONEB (A & A) INH PRN ×2 (04:03→14:02)
[2018-07-04] MEDS: ATIVAN PO PRN ×2 (04:41→12:49)
[2018-07-04 06:27] LABS: HEMATOCRIT 30.2 % (37.0-47.0); HEMOGLOBIN 9.4 g/dL (12.0-16.0); MCH 27.1 PG (27-31); MCHC 31.1 g/dL (33-37); MPV 9.9 FL (7.4-10.4); RBC 3.47 XMIL (4.2-5.4); WBC 7.95 X1000 (4.8-10.8)
[2018-07-04 07:22] LABS: AGAP 8; ALB/GLOB RATIO 1.3; ALBUMIN 3.3 g/dL (3.5-5.0); ALKALINE PHOSPHATASE 87 U/L (32-104); BUN 12 mg/dL (8-22); CALCIUM 9.8 mg/dL (8.8-10.2); CHLORIDE 98 mmol/L (98-107); COSMO 276; CREATININE 0.6 mg/dL (0.5-0.9); ESTIMATED GFR > 60; GLUCOSE 181 mg/dL (70-104); GOT 15 U/L (10-30); GPT 19 U/L (10-36); MAGNESIUM 1.7 mg/dL (1.5-2.7); POTASSIUM 3.6 mmol/L (3.5-5.1); SODIUM 136 mmol/L (136-145); TCO2 30 mmol/L (25-35); TOTAL BILIRUBIN 0.25 mg/dL (0.20-1.00); TOTAL PROTEIN 5.9 g/dL (6.3-8.3)
[2018-07-04] MEDS: DUONEB (A & A) INH SCH ×2 (08:04→14:02)
[2018-07-04] MEDS: MUCINEX PO SCH (08:36)
[2018-07-04] MEDS: COREG CR PO SCH (08:36)
[2018-07-04] MEDS: ENTRESTO 97 MG-103 MG TABLET PO SCH (08:36)
[2018-07-04] MEDS: CYMBALTA PO SCH (08:36)
[2018-07-04] MEDS: MYSOLINE PO SCH (08:37)
[2018-07-04] MEDS: LYRICA PO SCH (08:37)
[2018-07-04] MEDS: BASAGLAR SUBQ SCH (08:38)
--- NOTE | 2018-07-04 15:40 | DISCHARGE SUMMARY ---
ADMISSION DATE: 06/29/2018 DISCHARGE DATE: 07/04/2018 ADMITTING DIAGNOSES: 1. Toxic metabolic encephalopathy. 2. Generalized weakness. 3. Diarrhea. 4. Chronic obstructive pulmonary disease. 5. Diabetes mellitus type 2. 6. Hypertension. 7. [id number]. DISCHARGE DIAGNOSES: 1. Toxic metabolic encephalopathy. 2. Generalized weakness. 3. Diarrhea. 4. Chronic obstructive pulmonary disease. 5. Diabetes mellitus type 2. 6. Hypertension. 7. [id number]. CONSULTATIONS: None. DIAGNOSTIC PROCEDURES AND FINDINGS: EKG on 06/29/2018 showed normal sinus rhythm, no acute ST-T wave abnormalities. Chest x-ray on 06/29/2018: cardiomegaly, cannot exclude left basilar infiltrate, pleural effusion. Followup is recommended. Head and cervical spine CT on 06/29/2018: Stable, chronic-appearing white matter changes but no definite acute intracranial pathology. Multilevel degenerative arthropathy but no evidence of fracture and other definite acute C-spine injury. Hip and pelvis x-ray on 06/29/2018: On the left no evidence of acute osseous abnormality. On the right, there is mild right hip degenerative arthropathy. No evidence of acute abnormality. Left knee x-ray on 06/29/2018: Suprapatellar effusion. No acute bony abnormality. Right knee x-ray on 06/29/2018: Suprapatellar effusion. No acute bony abnormality. Lumbar spine x-ray on 06/29/2018: No evidence of acute bony disease. Degenerative disk disease. Abdomen x-ray on 06/29/2018: Nonspecific abdomen. Chest x-ray on 07/03/2018: Questionable basilar atelectasis. Borderline cardiomegaly. HOSPITAL COURSE: Ms. Ramirez is a 78-year-old female who was admitted with falls, weakness and diarrhea over the 2 days prior to admission. She had recently been placed on antibiotics with doxycycline and had her Ativan increased from 0.5 mg to 1 mg three times a day. Since that time, she had suffered 2 falls and was fairly drowsy. She had also had some increasing confusion and weakness. When her family brought her to the ER, multiple diagnostic and radiologic studies were done. No acute abnormalities were found. It was felt that she had toxic encephalopathy secondary to increasing Ativan and hypoglycemia. Her insulin was adjusted, as was her Ativan, and she improved greatly. We continued all the rest of her medications and she is now stable for discharge to [facility]. DISCHARGE MEDICATIONS: 1. Lasix 20 mg daily. 2. Potassium chloride 10 mEq p.o. daily. 3. Lyrica 150 mg p.o. t.i.d. 4. Coreg 80 mg daily. 5. Trazodone 50 mg q.h.s. 6. Norvasc 5 mg daily. 7. Entresto 97/103 mg daily. 8. Basaglar 25 units subcutaneously q.h.s.. 9. Lantus 25 units subcutaneously q.a.m.. 10.Duloxetine 30 mg daily. 11.Primidone 50 mg p.o. t.i.d.. 12.ProAir HFA, 1 puff as needed. 13.DuoNeb 3 mL inhaled t.i.d.. 14.Tramadol 25 mg p.o. q.12h. 15.Ativan 0.5 mg p.o. t.i.d. as needed. DISCHARGE LABORATORY DATA: WBC 7.95, hemoglobin 9.4, hematocrit 30.2, platelet count 300. Sodium 136, potassium 3.6, chloride 98, CO2 of 30, anion gap 8, BUN 12, creatinine 0.6, glucose 181, calcium 9.8, AST 15, ALT 19, alkaline phosphatase 87, albumin 3.3. DISCHARGE DIET: Diabetic diet. DISCHARGE ACTIVITY: Resume activity as tolerated under the care of [facility]. DISPOSITION AND OTHER DISCHARGE INSTRUCTIONS: The patient is discharged to [facility]. She is to continue medical care under their direction. She is to follow up with her primary care physician, Dr. Pankaj Wood, within the next 2 to 3 weeks or sooner if needed. She is to continue all medications and return to the Emergency Room or call 911 for worsening complaints or concerns. All questions were answered. Discharge time greater than 35 minutes. Dictated by VIPUL Miller for Trevor Lee MD Addendum: Patient seen and examined by myself. Agree with VIPUL note. It reflects my assessment and plan. Patient is being discharged in stable condition to home and will be seen by PCP in a week. cc: VIPUL Miller MD David Francis MD [facility]
[2018-07-04] MEDS ORDERED: HUMALOG SUBQ SCH (16:00)
[2018-07-04 17:14] VITALS: BP 136/82
== END 2018-07-04 17:19 | DRG 637 ==
LOC: SUPCPDRO → ED 13:50 → EDIPHOLD 22:51 → SUATTDRO 22:51 → 4N 06-30 03:54
PROVIDERS: ATTEND Internal Medicine
CPT/HCPCS: 51701; 70450; 71010; 71020; 71045; 71046; 72100; 72125; 73502; 73562; 74019; 74020; 80048; 80053; 81001; 82272; 82550; 82805; 82948; 83735; 83880; 84484; 85025; 85027; 85610; 85730; 87045; 87046; 87205; 87324; 89055; 93005; 94640; 94760; 94761; 96361; 96374; 97162; 97530; 99285; A9270; P9612; XXXXX